=== PATIENT | female | born 1960 | race Caucasian/White ===

== ENCOUNTER 2021-08-02 12:15 | Inpatient (IN) | payer OTHER, SELFPAY ==
[2021-08-02] VITALS (40 sets, daily range): BP systolic 87–120; BP diastolic 61–91; PULSE 51–92; RESP 9–33; TEMP 36.7–37.1; O2SAT 88–100
--- NOTE | ~2021-08-02 | US_ITS ---
EXAMINATION: US pelvic complete EXAM DATE: 08/02/2021 15:41 INDICATION: Vaginal bleeding. TECHNIQUE: Pelvic transabdominal sonogram was performed. There are multiple grayscale and Doppler im ages available for interpretation. There is no prior study for comparison. FINDINGS: Uterus measures 10.4 x 4.2 x 4.8 cm, with a 3.5 cm fibroid in the fundus anteriorly. Endom etrial stripe measures 11 mm, considered abnormally thickened for postmenopausal status. There is no free pelvic fluid. Right adnexa: The ovary is not identified. There is no adnexal mass. Left adnexa: The ovary is not identified. There is no adnexal mass. IMPRESSION: Thickened endometrium at 1.1 cm, differential diagnosis including hyperplasia, carcinoma, polyp. Consider CROSSING GUARD consult, histologic correlation. Fibroid. Reviewed, dictated and finalized at location G. NG SPECIALIST HOME HEALTH IMPRESSION: Thickened endometrium at 1.1 cm, differential diagnosis including h yperplasia, carcinoma, polyp. Consider CROSSING GUARD consult, histologic correlation. Tri mckeon.
--- NOTE | ~2021-08-02 | XR_ITS ---
EXAMINATION: XR chest 1V EXAM DATE: 08/02/2021 15:37 INDICATION: SOA . TECHNIQUE: Portable AP frontal chest x-ray was obtained. There is no prior study for comparison. FINDINGS: Cardiomegaly and pulmonary vascular congestion. There is indistinct reticulation with a bib rajani predominance which may indicate pulmonary edema. There is no pneumothorax suspected. Possible sm all pleural effusion. There is aortic arteriosclerosis. There are no osseous abnormalities identified . IMPRESSION: Findings consistent with mild CHF observation. Pneumonia not excludable. Reviewed, dictated and finalized at location G. GY CONSERVATION SPECIALIST IMPRESSION: Findings consistent with mild CHF observation. Pneumonia not exclu dable.
--- NOTE | ~2021-08-02 | XR_ITS ---
XR chest 2V 08/07/2021 10:31 Indication: Pneumonia. CHF. Procedure: 2 view chest Comparison: No prior studies for comparison. Findings: Heart size normal for technique. Possible small effusion posteriorly. No focal air space di sease, pulmonary edema, or suspected pneumothorax. Impression: 1: Possible small effusion posteriorly on the lateral view. Reviewed, dictated and finalized at location A. CITY PLANNING ANALYST Impression: 1: Possible small effusion posteriorly on the lateral view.
[2021-08-02 15:26] LABS: Base Excess ABG 13.2 mEq/l (+/-2.0); Carboxyhemoglobin 7.6 % THb (0-2.0); Fractional Inspired Oxygen 32 %; HCO3 ABG 48.5 mEq/l (22.0-26.0); Methemoglobin ABG 0.3 %THb (0-1.5); Oxygen Content ABG 20.5 %vol (16.0-22.0); Oxygen Saturation ABG 93.2 % (95.0-100.0); PO2 ABG 86.9 mmHg (80.0-100.0); PO2 FiO2 Ratio Arterial Blood 2.72 %; Reduced Hemoglobin 4.6 %THb (0-5.0); Total Hemoglobin 16.6 g/dL (12.0-18.0)
[2021-08-02 15:28] LABS: Oxyhemoglobin 87.5 % THb (90.0-100.0); PCO2 ABG 128.8 mmHg (35.0-45.0); pH ABG 7.194 (7.350-7.450)
[2021-08-02 15:29] LABS: Device NASAL CANNULA; Modified Allen's Test Pass; Site Drawn RIGHT RADIAL
[2021-08-02 16:11] LABS: Basophils Absolute Auto 0.2 K/mm3 (0.0-0.1); Basophils Percent Auto 1.1 % (0.2-1.2); Eosinophils Absolute Auto 0.2 K/mm3 (0-0.3); Eosinophils Percent Auto 1.1 % (0-4.4); Hematocrit 53.8 % (37.0-47.0); Hemoglobin 16.6 g/dL (12.0-15.0); Immature Granulocyte Absolute 0.17 K/mm3 (0.00-0.031); Immature Granulocyte Percent A 1.2 % (0-0.5); Lymphocytes Absolute Auto 1.48 K/mm3 (0.9-3.2); Lymphocytes Percent Auto 10.6 % (18.3-44.2); Mean Corpuscular HGB Conc 30.9 g/dl (32-36); Mean Corpuscular Hemoglobin 33.8 pg (26-34); Mean Corpuscular Volume 109.6 fl (80-100); Monocytes Absolute Auto 0.6 K/mm3 (0.1-0.6); Monocytes Percent Auto 4.1 % (2.6-8.5); Neutrophils Absolute Auto 11.5 K/mm3 (1.3-6.7); Neutrophils Percent Auto 81.9 % (45.5-73.1); Nucleated Red Blood Cells Perc 0.1 % (0.0-0.2); Platelet Count Result 296 k/mm3 (150-375); Red Blood Count 4.91 M/mm3 (4.2-5.4); Red Cell Distribution Width 16.6 % (11.5-14.5)
--- NOTE | 2021-08-02 16:16 | PC.NURSE ---
Talked to Joanna in lab at 16:16 to add on BNP
[2021-08-02 16:19] LABS: INR 0.8; Prothrombin Time 10.8 Seconds (11.1-14.7)
[2021-08-02 16:20] LABS: Partial Thromboplastin Time 29.2 SECONDS (22.3-36.8)
[2021-08-02 17:10] LABS: Alveolar/Arterial O2 Gradient 307.6 mmHg; Base Excess ABG 15.7 mEq/l (+/-2.0); Fractional Inspired Oxygen 75 %; HCO3 ABG 51.5 mEq/l (22.0-26.0); Oxygen Content ABG 21.2 %vol (16.0-22.0); Oxygen Saturation ABG 93.1 % (95.0-100.0); Oxyhemoglobin 89.1 % THb (90.0-100.0); PO2 ABG 85.8 mmHg (80.0-100.0); PO2 FiO2 Ratio Arterial Blood 1.14 %; Total Hemoglobin 16.9 g/dL (12.0-18.0)
[2021-08-02 17:11] LABS: pH ABG 7.206 (7.350-7.450)
[2021-08-02 17:12] LABS: Device NON-INVASIVE VENT; Modified Allen's Test Pass; Non-Invasive Expiratory Pressure 10 CMH2O; Non-Invasive Inspiratory Pressure 20 CMH2O; Non-Invasive Vent Rate 24 /MIN; Site Drawn LEFT RADIAL
[2021-08-02] MEDS: FUROSEMIDE INJ 40 MG/4 ML VIAL IV PUSH (18:05)
--- NOTE | 2021-08-02 18:24 | ED.GENADULT ---
HPI - General Adult General Chief complaint: Vaginal Bleeding Stated complaint: Bleeding from Vagina Time Seen by Provider: 08/02/21 15:01 History of Present Illness HPI narrative: Patient is a 61-year-old female who presents the ER with reports of vaginal bleeding. Patient apparently missed a Returns Clerk appointment today and EMS was called to bring her here. Patient found to be hypoxic on room air. Patient wears 3 L baseline. Patient oriented x 2 and unsure why she is here. Related Data Allergies Allergy/AdvReac Type Severity Reaction Status Date / Time No Known Allergies Allergy Verified 08/02/21 18:04 Review of Systems Review of Systems: ROS unobtainable: Yes unobtainable due to mental status PMFSH Past Medical History Medical History (Updated 08/02/21 @ 20:22 by Nader Jung MD) COPD (chronic obstructive pulmonary disease) Surgical History Surgical History (Updated 08/02/21 @ 20:22 by Nader Jung MD) Surgical history unknown Social History Social History (Updated 08/02/21 @ 20:22 by Nader Jung MD) Smoking status: Unknown if ever smoked Exam Narrative: GENERAL: Chronically ill-appearing, morbidly obese, and in no acute distress. HEAD: Normocephalic, atraumatic. EYES: PERRL and EOMI. ENT: Mucous membranes moist. CHEST: Clear to auscultation. No respiratory distress. HEART: Regular rate and rhythm. Normal peripheral pulses. ABDOMEN: Soft, nontender, nondistended. EXTREMITIES: Normal range of motion. 1+ edema. SKIN: Warm, dry, no rash. NEURO: Alert and oriented x2. Course Reevaluation(s) Reevaluation #2: Discussed case with Dr. Ingram. ABG improving and patient clinically improving. Diuresing well. Will place in the IMU. Date: 08/02/21 Time: 20:12 Consultations Consultation #1: Discussed case with Dr. Wade in the ICU. Clinically patient is more awake but ABG not improving. He would like the patient to have her EPAP decreased to 5 from 10 and have her on the minimum oxygen requirement possible. Repeat ABG in 1 hour. Patient is accepted to the ICU but will likely be held in the ER due to lack of beds. He also recommends IV Lasix which has been ordered as well as IV antibiotics. Date: 08/02/21 Time: 18:24 Vital Signs Vital signs: Vital Signs Temperature 98.8 F 08/02/21 12:45 Pulse Rate 92 08/02/21 12:45 Respiratory Rate 18 08/02/21 12:45 Blood Pressure 120/87 08/02/21 12:45 Pulse Oximetry 92 08/02/21 12:45 Temperature 98.8 F 08/02/21 12:45 Pulse Rate 81 08/02/21 19:52 Respiratory Rate 25 H 08/02/21 19:52 Blood Pressure 120/87 08/02/21 12:45 Pulse Oximetry 100 08/02/21 19:52 Medical Decision Making Vital Signs Vital Signs: Vital Signs Temperature 98.8 F 08/02/21 12:45 Pulse Rate 92 08/02/21 12:45 Respiratory Rate 18 08/02/21 12:45 Blood Pressure 120/87 08/02/21 12:45 Pulse Oximetry 92 08/02/21 12:45 Temperature 98.8 F 08/02/21 12:45 Pulse Rate 81 08/02/21 19:52 Respiratory Rate 25 H 08/02/21 19:52 Blood Pressure 120/87 08/02/21 12:45 Pulse Oximetry 100 08/02/21 19:52 Lab Data Result diagrams: 08/02/21 15:59 08/02/21 19:23 Labs: Lab Results 08/02/21 08/02/21 08/02/21 Range/Units 15:23 15:59 15:59 WBC 14.0 H (4.5-10.0) K/mm3 RBC 4.91 (4.2-5.4) M/mm3 Hgb 16.6 H (12.0-15.0) g/dL Hct 53.8 H (37.0-47.0) % MCV 109.6 H (80-100) fl MCH 33.8 (26-34) pg MCHC 30.9 L (32-36) g/dl RDW 16.6 H (11.5-14.5) % Plt Count 296 (150-375) k/mm3 MPV 9.0 (7.4-10.4) fl Immature Gran % (Auto) 1.2 H (0-0.5) % Neut % (Auto) 81.9 H (45.5-73.1) % Lymph % (Auto) 10.6 L (18.3-44.2) % Crowley % (Auto) 4.1 (2.6-8.5) % Eos % (Auto) 1.1 (0-4.4) % Baso % (Auto) 1.1 (0.2-1.2) % Lymph # (Auto) 1.48 (0.9-3.2) K/mm3 Crowley # (Auto) 0.6 (0.1-0.6) K/mm3 Eos # (Auto) 0.2 (0-0.3) K/mm3 Baso # (Auto) 0.2 H
[2021-08-02 18:40] LABS: SARS-CoV-2 RNA PCR Negative
[2021-08-02 18:42] LABS: NT Pro B Type Natriuretic Pept 56 pg/mL (5-100)
[2021-08-02 19:43] LABS: Alanine Aminotransferase 21 U/L (4-35); Albumin Level 4.4 g/dL (3.5-5.1); Alkaline Phosphatase 104 U/L (38-126); Aspartate Amino Transferase 39 U/L (14-36); Bilirubin,Total 0.6 mg/dL (0.2-1.3); Blood Urea Nitrogen 10 mg/dL (7-17); Calcium 8.5 mg/dL (8.4-10.2); Carbon Dioxide > 40 mmol/L (22-30); Chloride 90 mmol/L (98-107); Estimated Glomerular Filt Rate 50; Glucose 110 mg/dL (65-110); Potassium 4.4 mmol/L (3.4-5.0); Sodium 135 mmol/L (137-145)
[2021-08-02 19:47] LABS: Alveolar/Arterial O2 Gradient 205.2 mmHg; Base Excess ABG 12.4 mEq/l (+/-2.0); Fractional Inspired Oxygen 60 %; HCO3 ABG 46.3 mEq/l (22.0-26.0); Oxygen Content ABG 21.2 %vol (16.0-22.0); Oxygen Saturation ABG 95.4 % (95.0-100.0); PO2 FiO2 Ratio Arterial Blood 1.62 %; Total Hemoglobin 16.5 g/dL (12.0-18.0)
[2021-08-02 19:49] LABS: pH ABG 7.226 (7.350-7.450)
[2021-08-02 19:50] LABS: Device NON-INVASIVE VENT; Modified Allen's Test Pass; PCO2 ABG 114.2 mmHg (35.0-45.0); Site Drawn LEFT RADIAL
[2021-08-02 19:51] LABS: Non-Invasive Expiratory Pressure 5 CMH2O; Non-Invasive Inspiratory Pressure 20 CMH2O; Non-Invasive Vent Rate 24 /MIN
--- NOTE | 2021-08-02 20:02 | PM.IMHP ---
H&P: HPI History of Present Illness Date/Time: 08/02/21 20:02 Chief Complaint: Shortness of breath Narrative: This is a 61-year-old female with past medical history significant for COPD, patient was brought to the emergency room via EMS, due to worsening shortness of breath, low oxygen saturation on 3 L by nasal cannula. Patient does not have any prior records available for reviewing at this time. Most of the history has been obtained from emergency room. At the time of my visit patient is on BiPAP history taking hence is limited. But patient was supposed to have follow-up appointment with Tanning Salon Attendant postmenopausal vaginal bleed seemingly was unable to make it to the appointment and turned up to our emergency room. Preliminary workup was significant for chest x-ray with infiltrates, Gyne Neutra some with thickened endometrium. Decision has been made to admit the patient for further evaluation, management and treatment. Review of Systems Review of Systems: ROS unobtainable: Yes unobtainable due to medical condition (On BiPAP) PMFSH Past Medical History Medical History (Updated 08/03/21 @ 03:03 by Richard Ingram MD) COPD (chronic obstructive pulmonary disease) Surgical History Surgical History (Updated 08/02/21 @ 20:22 by Nader Jung MD) Surgical history unknown Family History Family History (Updated 08/02/21 @ 23:15 by Liana Gao RN) Other Unknown family medical history Social History Social History (Updated 08/02/21 @ 20:22 by Nader Jung MD) Smoking status: Current every day smoker Alcohol intake: never Substance use: current Substance use type: marijuana Spiritual care concerns: No Meds Home Medications and Allergies Allergies Allergy/AdvReac Type Severity Reaction Status Date / Time No Known Allergies Allergy Verified 08/02/21 18:04 Vital Signs Vital Signs - 24 hr 08/02/21 12:45 08/02/21 15:44 08/02/21 17:02 Temperature 98.8 F Pulse Rate 92 78 86 Respiratory Rate 18 24 H 33 H Blood Pressure 120/87 Pulse Oximetry 92 93 97 08/02/21 17:27 08/02/21 18:26 08/02/21 19:52 Temperature Pulse Rate 73 81 Respiratory Rate 24 H 25 H Blood Pressure Pulse Oximetry 97 88 L 100 Exam Narrative: Patient is laying in gurney Const: General: comfortable, no acute distress, well developed, alert, awake, in distress moderate and respiratory and ill appearing Nutritional Appearance: overweight Orientation/consciousness: patient oriented x3 HENMT: Head: normal to inspection, normocephalic and atraumatic Ears: hearing grossly normal bilaterally General nose exam: Normal external nose present Face and sinus: normal facial exam and other (BiPAP mask on) Mouth: Yes Normal oral and palatal mucosa present Eyes: General: appearance normal, both eyes and all related structures Alignment and Position: alignment normal Sclera: sclerae normal Pupils: Equal, round and reactive pupils present EOM: EOMs intact bilaterally Neck: Neck: normal visual inspection, full ROM, no lymphadenopathy, supple and no JVD Thyroid: thyroid normal Lymphatic: no lymphadenopathy noted Resp: Effort & Inspection: able to speak in complete sentences, respiratory distress and tachypneic Auscultation: crackles on the left and wheezes Cardio: Jugular venous distension: no JVD Rate: tachycardic Rhythm: regular rhythm Heart sounds: S1 normal heart sound present and S2 normal heart sound present GI: Inspection: normal to inspection and other (Noted dried chocolate [place] blood in the lower abdomen) GI Palp: Yes Soft to palpation, No Tenderness to palpation present (GI), No Guarding due to palpation present (GI) and Yes No hepatosplenomegaly present : General: Yes deferred OB/external & speculum: Deferred OB/external & speculum exam Manual OB Exam: Deferred manual OB exam Skin: General skin exam: normal color and turgor normal Rashes: no rashes Wounds: no wounds Neuro: General: pat
--- NOTE | 2021-08-02 22:43 | ADMGEN ---
This patient, Mireya Wagner, was admitted to IMU Room 207-01 at 2243. Patient/family oriented to hospital policies and general routines including ID bracelet, bed and alarms, visiting hours, pain management, procedures, bathroom and other care routines, personal items, smoking policy, room service/diet, and visiting hours. Information on how to activate the Rapid Response Team has been discussed. Patient/Family are encouraged to report perceived risks to care and to ask questions if they do not understand what they are told or what they should do.
[2021-08-03] VITALS (30 sets, daily range): BP systolic 101–133; BP diastolic 62–78; PULSE 60–96; RESP 18–30; TEMP 36.6–36.9; O2SAT 91–98
--- NOTE | 2021-08-03 | ECHO_ITS ---
Patient Info Name: Mireya Ramirez Age: 61 years : 1960 Gender: Female Ht: 62 in Wt: 291 lbs BSA: 2.49 m2 HR: 72 bpm BP: 114 / 65 mmHg Heart Rhythm: Indeterminant Technical Quality: Poor Exam Date: 08/03/2021 10:27 AM Exam Location: [facility] Room: 207 Patient Status: Inpatient Admit Date: 08/03/2021 Staff Ordering Physician: Richard Ingram MD Rubber Goods Tester: Marissa Gonzalez RDCS Attending Provider: Richard Ingram MD Referring Physician: Juan Jose SANTANA; Exam Type: CA echo dop color flow w con Study Info Indications - CHF Complete two-dimensional, color flow and Doppler transthoracic echocardiogram is performed with contrast to opacify the left ventricle and to improve the deliniation of the left ventricle endocardial borders. Contrast/Agitated Saline Contrast/Ag. Saline: Definity Amount: 3.00 ml Existing IV Access: Yes IV Access Condition: patent with no signs of infiltration Reason for Poor Study: patient body habitus Summary 1. Normal left ventricular size with borderline concentric hypertrophy. Good systolic function of all segments with no segmental wall motion abnormalities. Ejection fraction estimated to be 60-65%. Diastolic function is indeterminate. 2. No significant valve disease. 3. Mild left atrial enlargement. 4. Difficult exam with limited views, IV definity contrast used. Left Ventricle Left ventricular chamber dimension is normal. Left ventricular systolic function is normal, estimated at 60-65%. There is mildly increased left ventricular wall thickness. Left ventricular septal wall motion is normal. The left ventricular diastolic function is indeterminate. Right Ventricle Right ventricular chamber dimension is normal. Right ventricular systolic function is normal. Left Atria Left atrial chamber dimension is mildly enlarged. Right Atria Right atrial chamber dimension is normal. Aortic Valve The aortic valve is trileaflet. There is no aortic valve sclerosis. There is no aortic valve stenosis. There is no aortic valve regurgitation. Pulmonic Valve The pulmonic valve is normal. There is no pulmonic valve stenosis. There is no pulmonic regurgitation. Mitral Valve The mitral valve has normal leaflets. There is no mitral valve stenosis. There is no mitral valve regurgitation. Tricuspid Valve The tricuspid valve leaflets are normal. There is no significant tricuspid valve stenosis. There is no tricuspid valve regurgitation. No pulmonary hypertension, estimated pulmonary arterial systolic pressure is Empty. Pericardium/Pleural The pericardium appears normal. There is no pericardial effusion. Inferior Vena Cava Normal inferior vena cava with >50% collapse upon inspiration consistent with Empty right atrial pressure, Empty. Aorta The aortic root size at the sinus of Valsalva is normal. The prox ascending aorta size is normal. Left Ventricular Outflow Tract Name Value Normal LVOT 2D LVOT Diameter 2.07 cm LVOT Doppler LVOT Peak Gradient 5
[2021-08-03] MEDS: IPRATROPIUM BR 0.02% INH SOLN 0.5 MG/2.5 ML VIAL INHALATION ×5 (04:06→21:33)
[2021-08-03] MEDS: ALBUTEROL SULFATE NEB 2.5 MG/0.5 ML INH INHALATION ×5 (04:06→21:33)
[2021-08-03] MEDS: methylPREDNISolone SOD SUCC 125 MG VIAL IV PUSH (04:15)
[2021-08-03 05:20] LABS: NT Pro B Type Natriuretic Pept 40 pg/mL (5-100)
[2021-08-03] MEDS: PERFLUTREN LIPID MICROSPHERES 1.5 ML VIAL DILUTED TO 10 ML TOTAL VOLUME IV PUSH (11:01)
--- NOTE | 2021-08-03 11:01 | IVDEFINITY ---
Prior to administration of IV Definity the patient was educated on the risks and benefits of the imaging enhancing agent including potential adverse side effects. The patient verbalized understanding. Allergies were verified. No exclusion criteria were identified and at least one of the following inclusion criteria were met: 1) physician request, 2) patient technically difficult to image (per the [place] [employer]chocardi[employer] guidelines of two or more segments not discernable within the apical view), or 3) questionable left ventricular function. ?
[2021-08-03] MEDS: methylPREDNISolone SOD SUCC 125 MG VIAL 60 MG IV PUSH ×2 (11:37→20:31)
[2021-08-03] MEDS: FUROSEMIDE INJ 40 MG/4 ML VIAL IV PUSH ×2 (11:37→20:30)
[2021-08-03 12:11] LABS: Alveolar/Arterial O2 Gradient 209.9 mmHg; Base Excess ABG 12.4 mEq/l (+/-2.0); Fractional Inspired Oxygen 50 %; HCO3 ABG 42.5 mEq/l (22.0-26.0); Oxygen Content ABG 21.6 %vol (16.0-22.0); Oxygen Saturation ABG 88.1 % (95.0-100.0); Oxyhemoglobin 90.7 % THb (90.0-100.0); PO2 ABG 58.9 mmHg (80.0-100.0); PO2 FiO2 Ratio Arterial Blood 1.18 %; pH ABG 7.354 (7.350-7.450)
[2021-08-03 12:16] LABS: Device NON-INVASIVE VENT; Modified Allen's Test Pass; Non-Invasive Expiratory Pressure 5 CMH2O; Non-Invasive Inspiratory Pressure 20 CMH2O; Non-Invasive Vent Rate 24 /MIN; Site Drawn RIGHT RADIAL
[2021-08-03 13:11] LABS: D Dimer 0.46 ug/mL (<0.48)
--- NOTE | 2021-08-03 15:38 | PM.IMPN ---
Progress Note: A&P Assessment and Plan (1) Acute hypercapnic respiratory failure: Code(s): J96.02 - Acute respiratory failure with hypercapnia Status: Acute Assessment and Plan: Admit to IMU Continuous BiPAP ABG reviewed Repeat ABG in a.m. Try and keep oxygen saturation at 94% Continuous pulse ox Continuous telemetry Bed rest 08/03/2021 interval history: patient is 61-year-old female with history of COPD and chronic hypercapnic respiratory failure admitted with exacerbation of COPD patient is being treated with Solu-Medrol and updraft currently patient on BiPAP, did ABG which showed improvement in patient's CO2 from 114 to to 78, plan is to take the patient off BiPAP briefly to let the patient eat and then S the patient back on BiPAP and continue to monitor, is patient's symptoms improved will taper patient methylprednisone, also there is a concern the patient may have community-acquired pneumonia and being treated with Rocephin and azithromycin. there is also concern patient may have vaginal bleeding will consult rapier insertion loom fixer for further recommendation (2) COPD (chronic obstructive pulmonary disease): Code(s): J44.9 - Chronic obstructive pulmonary disease, unspecified Status: Inactive Assessment and Plan: Breathing treatments q.4 hours Systemic steroids Added Rocephin and Zithromax Blood cultures in progress BNP ECHOCARDIOGRAM CT HIGH-RESOLUTION OF THE CHEST (3) Pneumonia: Code(s): J18.9 - Pneumonia, unspecified organism Status: Acute Assessment and Plan: Rocephin and Zithromax Blood cultures in progress (4) Abnormal vaginal bleeding in postmenopausal patient: Code(s): N95.0 - Postmenopausal bleeding Status: Acute Assessment and Plan: Slate Splitting Supervisor consult Pelvic ultrasound reviewed Subjective Date/time seen: 08/03/21 15:38 This is a 61-year-old female with past medical history significant for COPD, patient was brought to the emergency room via EMS, due to worsening shortness of breath, low oxygen saturation on 3 L by nasal cannula. Patient does not have any prior records available for reviewing at this time. Most of the history has been obtained from emergency room. At the time of my visit patient is on BiPAP history taking hence is limited. But patient was supposed to have follow-up appointment with Slate Splitting Supervisor postmenopausal vaginal bleed seemingly was unable to make it to the appointment and turned up to our emergency room. Preliminary workup was significant for chest x-ray with infiltrates, Gyne Neutra some with thickened endometrium. Decision has been made to admit the patient for further evaluation, management and treatment. 08/03/2021 interval history: patient is 61-year-old female with history of COPD and chronic hypercapnic respiratory failure admitted with exacerbation of COPD patient is being treated with Solu-Medrol and updraft currently patient on BiPAP, did ABG which showed improvement in patient's CO2 from 114 to to 78, plan is to take the patient off BiPAP briefly to let the patient eat and then S the patient back on BiPAP and continue to monitor, is patient's symptoms improved will taper patient methylprednisone, also there is a concern the patient may have community-acquired pneumonia and being treated with Rocephin and azithromycin. there is also concern patient may have vaginal bleeding will consult rapier insertion loom fixer for further recommendation Review of Systems Review of Systems: ROS unobtainable: Yes unobtainable due to medical condition Exam Narrative: morbidly obese Patient is comfortable, NAD HEENT: eyes are clear and none icteric BiPAP in place LUNGS: bilateral poor air entry with rhonchi and wheezing HEART: RR S1S2 ABD: distended Lower extremities: no edema SKIN: nonjaundiced Neuro: grossly intact. Objective Data Vital Signs Vital Signs: Vital Signs - 24 hr 08/02/21 15:39 08/02/21 15:44 08/02/21 15:47 Temperature Pulse Rate 87 78 51 L
[2021-08-03 17:59] LABS: Alveolar/Arterial O2 Gradient 414.3 mmHg; Base Excess ABG 9.6 mEq/l (+/-2.0); Fractional Inspired Oxygen 80 %; HCO3 ABG 39.8 mEq/l (22.0-26.0); Oxygen Content ABG 21.3 %vol (16.0-22.0); Oxygen Saturation ABG 92.4 % (95.0-100.0); Oxyhemoglobin 93.2 % THb (90.0-100.0); PO2 ABG 72.1 mmHg (80.0-100.0); Total Hemoglobin 16.3 g/dL (12.0-18.0); pH ABG 7.315 (7.350-7.450)
[2021-08-03 18:01] LABS: Device HIGH FLOW NASAL CANN; Modified Allen's Test Pass; Site Drawn RIGHT RADIAL
[2021-08-04] VITALS (24 sets, daily range): BP systolic 101–111; BP diastolic 66–68; PULSE 68–101; RESP 12–26; TEMP 36.1–36.6; O2SAT 86–98
[2021-08-04] MEDS: IPRATROPIUM BR 0.02% INH SOLN 0.5 MG/2.5 ML VIAL INHALATION ×6 (00:59→23:45)
[2021-08-04] MEDS: ALBUTEROL SULFATE NEB 2.5 MG/0.5 ML INH INHALATION ×6 (00:59→23:45)
[2021-08-04] MEDS: methylPREDNISolone SOD SUCC 125 MG VIAL 60 MG IV PUSH ×5 (02:51→23:51)
[2021-08-04 05:21] LABS: Hematocrit 47.9 % (37.0-47.0); Hemoglobin 14.9 g/dL (12.0-15.0); Mean Corpuscular HGB Conc 31.1 g/dl (32-36); Mean Corpuscular Hemoglobin 32.6 pg (26-34); Mean Corpuscular Volume 104.8 fl (80-100); Mean Platelet Volume 8.9 fl (7.4-10.4); Platelet Count Result 306 k/mm3 (150-375); Red Blood Count 4.57 M/mm3 (4.2-5.4); Red Cell Distribution Width 15.6 % (11.5-14.5); White Blood Count 18.1 K/mm3 (4.5-10.0)
[2021-08-04 05:32] LABS: Blood Urea Nitrogen 16 mg/dL (7-17); Calcium 7.3 mg/dL (8.4-10.2); Carbon Dioxide > 40 mmol/L (22-30); Chloride 84 mmol/L (98-107); Estimated CRCL calculation 60 ml/min; Estimated Glomerular Filt Rate 50; Glucose 184 mg/dL (65-110); Potassium 4.3 mmol/L (3.4-5.0); Sodium 131 mmol/L (137-145)
[2021-08-04] MEDS: LEVOTHYROXINE SODIUM 100 MCG, LEVOTHYROXINE SODIUM 75 MCG 175 MCG PO (10:09)
[2021-08-04] MEDS: FUROSEMIDE INJ 40 MG/4 ML VIAL IV PUSH ×2 (10:09→17:33)
[2021-08-04] MEDS: TRIAMCINOLONE ACET 0.1% OINT 15 GM TUBE 1 APPLIC TOPICAL ×2 (10:19→22:31)
--- NOTE | 2021-08-04 12:50 | WPDCN ---
Assessment and Plan Assessment and plan (1) Abnormal vaginal bleeding in postmenopausal patient: Code(s): N95.0 - Postmenopausal bleeding Status: Acute Assessment and Plan: Discussed with her the possible etiologies of this which can cause abnormal bleeding. Discussed with her endometrial biopsy which can be done or attempted on the floor and if the cells are abnormal or if inadequate then she may need a dilation and curettage possible hysteroscopy. Discussed what these procedures are and the risks benefits of each. She did agree to do the endometrial biopsy on the floor while she is here. Endometrial biopsy performed on the floor. See procedure note. Biopsy was difficult to perform due to patient discomfort, appeared to be mostly blood. Specimen will be sent to pathology, if inadequate then recommend D and C hysteroscopy which can be done outpatient or inpatient. HPI Data of Consult Date/Time: 08/03/21 1800 Requesting Physician: Richard Ingram MD Primary Care Provider: UNKNOWN,DOCTOR Consult Narrative Narrative: Mireya Ramirez is a 61 year old female with a long history of postmenopausal bleeding. She was unable to specify the duration of the bleeding. She stated it could have been occurring anywhere from 6 months to over a year. She did state that she has been evaluated for this in the past and she has been told that she had endometrial polyps. She does not remember when or where. She does not remember if she had a D and C she thinks she had a biopsy or several biopsies in the past but she is not a good historian. She denies any pelvic pain. She states the bleeding ranges from bleeding with wiping to getting some on her underwear. She denies saturating more than a pad an hour. She was informed that the ultrasound that was performed when she was admitted was abnormal it showed that her endometrial lining was thicker than what it should be for postmenopausal patient. Discussed with her the possible etiologies of this which can cause abnormal bleeding. Discussed with her endometrial biopsy which can be done or attempted on the floor and if the cells are abnormal or if inadequate then she may need a dilation and curettage possible hysteroscopy. Discussed what these procedures are and the risks benefits of each. She did agree to do the endometrial biopsy on the floor while she is here. Review of Systems Constitutional: Constitutional: Reports as per HPI Eyes: Eyes: Reports no additional eye complaints Cardiovascular: Cardiovascular: Reports chest pain Respiratory: Respiratory: Reports cough and Reports dyspnea Genitourinary: Genitourinary: Reports as per HPI Integumentary/Breasts: Skin/Breast: Reports system reviewed and no additional complaints, except as docu PMFSH Past Medical History Medical History COPD (chronic obstructive pulmonary disease) Surgical History Surgical History Surgical history unknown Family History Family History Other Unknown family medical history Social History Social History Smoking status: Current every day smoker Alcohol intake: never Substance use: current Substance use type: marijuana Spiritual care concerns: No Meds Home Medications and Allergies Home Medications Medication Instructions Recorded Confirmed Type albuterol sulfate 2 puff INHALATION Q4H PRN 08/04/21 08/04/21 History glycopyrrolate-formoterol [Bevespi 2 puff INHALATION Q12H 08/04/21 08/04/21 History Aerosphere] levothyroxine 175 mcg PO DAILY 08/04/21 08/04/21 History triamcinolone acetonide 1 applic TOPICAL Q12H 08/04/21 08/04/21 History Allergies Allergy/AdvReac Type Severity Reaction Status Date / Time No Known Allergies Allergy Verifie
--- NOTE | 2021-08-04 13:19 | PM.OP ---
Procedure Note - Brief Procedure Note - Brief Date of procedure: 08/03/21 Pre-op diagnosis: hypercapnic respiratory failure,ams,pneumonia Post-op diagnosis: same Procedure performed: Endometrial biopsy Description of procedure: After informed consent obtained. Performed on the floor inpatient. Patient placed on reverse bedpan. Speculum inserted. Small to moderate amount dark blood in vagina. Cervix visualized, mildly stenotic. Single tooth tenaculum placed on cervix. Endometrial pipelle passed twice. Mostly blood noted. Tenaculum removed. Hemostasis noted at site. Pap not performed due to the blood. Speculum removed. Will inform patient of biopsy result. Surgeon: Alexandre Bennett MD
--- NOTE | 2021-08-04 14:57 | PM.IMPN ---
Progress Note: A&P Assessment and Plan (1) Acute hypercapnic respiratory failure: Code(s): J96.02 - Acute respiratory failure with hypercapnia Status: Acute Assessment and Plan: Admit to IMU Continuous BiPAP ABG reviewed Repeat ABG in a.m. Try and keep oxygen saturation at 94% Continuous pulse ox Continuous telemetry Bed rest 08/03/2021 interval history: patient is 61-year-old female with history of COPD and chronic hypercapnic respiratory failure admitted with exacerbation of COPD patient is being treated with Solu-Medrol and updraft currently patient on BiPAP, did ABG which showed improvement in patient's CO2 from 114 to to 78, plan is to take the patient off BiPAP briefly to let the patient eat and then S the patient back on BiPAP and continue to monitor, is patient's symptoms improved will taper patient methylprednisone, also there is a concern the patient may have community-acquired pneumonia and being treated with Rocephin and azithromycin. there is also concern patient may have vaginal bleeding will consult biodiesel division manager for further recommendation. 08/04/2021 interval history: patient is 61-year-old female with history of COPD and chronic hypercapnic respiratory failure admitted with exacerbation of COPD patient is being treated with Solu-Medrol and updraft currently patient on BiPAP, did ABG which showed improvement in patient's CO2 from 114 to to 78, plan is to take the patient off BiPAP briefly to let the patient eat and then as the patient back on BiPAP and continue to monitor, today today patient's symptoms are improved on nasal cannula will continue to monitor, as patient's symptoms improved will taper patient methylprednisone, also there is a concern the patient may have community-acquired pneumonia and being treated with Rocephin and azithromycin. there is also concern patient may have vaginal bleeding patient was seen OBGYN and biopsy was taken will monitor and further recommendation to follow. (2) COPD (chronic obstructive pulmonary disease): Code(s): J44.9 - Chronic obstructive pulmonary disease, unspecified Status: Inactive Assessment and Plan: Breathing treatments q.4 hours Systemic steroids Added Rocephin and Zithromax Blood cultures in progress BNP ECHOCARDIOGRAM CT HIGH-RESOLUTION OF THE CHEST (3) Pneumonia: Code(s): J18.9 - Pneumonia, unspecified organism Status: Acute Assessment and Plan: Rocephin and Zithromax Blood cultures in progress (4) Abnormal vaginal bleeding in postmenopausal patient: Code(s): N95.0 - Postmenopausal bleeding Status: Acute Assessment and Plan: Research Scientist consult Pelvic ultrasound reviewed Subjective Date/time seen: 08/04/21 14:57 08/03/2021 interval history: patient is 61-year-old female with history of COPD and chronic hypercapnic respiratory failure admitted with exacerbation of COPD patient is being treated with Solu-Medrol and updraft currently patient on BiPAP, did ABG which showed improvement in patient's CO2 from 114 to to 78, plan is to take the patient off BiPAP briefly to let the patient eat and then S the patient back on BiPAP and continue to monitor, is patient's symptoms improved will taper patient methylprednisone, also there is a concern the patient may have community-acquired pneumonia and being treated with Rocephin and azithromycin. there is also concern patient may have vaginal bleeding will consult biodiesel division manager for further recommendation 08/04/2021 interval history: patient is 61-year-old female with history of COPD and chronic hypercapnic respiratory failure admitted with exacerbation of COPD patient is being treated with Solu-Medrol and updraft currently patient on BiPAP, did ABG which showed improvement in patient's CO2 from 114 to to 78, plan is to take the patient off BiPAP briefly to let the patient eat and then as the patient back on BiPAP and continue to monitor, today today patient's symptoms are improved on na
[2021-08-04] MEDS: HYDROcodone/acetaminophen (*CRX) 5-325 MG TABLET 1 TAB PO (20:26)
[2021-08-05] VITALS (30 sets, daily range): BP systolic 100–134; BP diastolic 1–89; PULSE 64–88; RESP 14–26; TEMP 36.2–37.4; O2SAT 92–97
[2021-08-05] MEDS: ALBUTEROL SULFATE NEB 2.5 MG/0.5 ML INH INHALATION ×5 (04:31→20:53)
[2021-08-05] MEDS: IPRATROPIUM BR 0.02% INH SOLN 0.5 MG/2.5 ML VIAL INHALATION ×5 (04:31→20:53)
[2021-08-05 05:59] LABS: Hematocrit 48.6 % (37.0-47.0); Mean Corpuscular HGB Conc 30.9 g/dl (32-36); Mean Corpuscular Hemoglobin 33.2 pg (26-34); Mean Corpuscular Volume 107.5 fl (80-100); Mean Platelet Volume 9.5 fl (7.4-10.4); Platelet Count Result 292 k/mm3 (150-375); Red Blood Count 4.52 M/mm3 (4.2-5.4); Red Cell Distribution Width 15.8 % (11.5-14.5); White Blood Count 19.3 K/mm3 (4.5-10.0)
[2021-08-05 06:13] LABS: Blood Urea Nitrogen 22 mg/dL (7-17); Calcium 7.5 mg/dL (8.4-10.2); Carbon Dioxide > 40 mmol/L (22-30); Chloride 81 mmol/L (98-107); Estimated CRCL calculation 68 ml/min; Estimated Glomerular Filt Rate > 60; Glucose 157 mg/dL (65-110); Potassium 4.5 mmol/L (3.4-5.0); Sodium 129 mmol/L (137-145)
[2021-08-05] MEDS: LEVOTHYROXINE SODIUM 100 MCG, LEVOTHYROXINE SODIUM 75 MCG 175 MCG PO (06:40)
[2021-08-05] MEDS: methylPREDNISolone SOD SUCC 125 MG VIAL 60 MG IV PUSH ×4 (06:40→23:53)
[2021-08-05] MEDS: HYDROcodone/acetaminophen (*CRX) 5-325 MG TABLET 1 TAB PO (06:50)
[2021-08-05] MEDS: FUROSEMIDE INJ 40 MG/4 ML VIAL IV PUSH ×2 (12:23→17:44)
[2021-08-05] MEDS: TRIAMCINOLONE ACET 0.1% OINT 15 GM TUBE 1 APPLIC TOPICAL ×2 (12:23→21:18)
[2021-08-05 12:51] LABS: Alveolar/Arterial O2 Gradient 280.1 mmHg; Base Excess ABG 18.7 mEq/l (+/-2.0); Fractional Inspired Oxygen 60 %; HCO3 ABG 48.2 mEq/l (22.0-26.0); Oxygen Saturation ABG 92.3 % (95.0-100.0); Oxyhemoglobin 93.1 % THb (90.0-100.0); PO2 ABG 65.3 mmHg (80.0-100.0); PO2 FiO2 Ratio Arterial Blood 1.09 %; Total Hemoglobin 16.1 g/dL (12.0-18.0); pH ABG 7.426 (7.350-7.450)
[2021-08-05 12:55] LABS: Device NON-INVASIVE VENT; Modified Allen's Test Pass; PCO2 ABG 74.9 mmHg (35.0-45.0); Site Drawn RIGHT RADIAL
[2021-08-05 12:56] LABS: Non-Invasive Expiratory Pressure 5 CMH2O; Non-Invasive Inspiratory Pressure 20 CMH2O; Non-Invasive Vent Rate 24 /MIN
--- NOTE | 2021-08-05 16:28 | PM.IMPN ---
Progress Note: A&P Assessment and Plan (1) Acute hypercapnic respiratory failure: Code(s): J96.02 - Acute respiratory failure with hypercapnia Status: Acute Assessment and Plan: Admit to IMU Continuous BiPAP ABG reviewed Repeat ABG in a.m. Try and keep oxygen saturation at 94% Continuous pulse ox Continuous telemetry Bed rest 08/03/2021 interval history: patient is 61-year-old female with history of COPD and chronic hypercapnic respiratory failure admitted with exacerbation of COPD patient is being treated with Solu-Medrol and updraft currently patient on BiPAP, did ABG which showed improvement in patient's CO2 from 114 to to 78, plan is to take the patient off BiPAP briefly to let the patient eat and then S the patient back on BiPAP and continue to monitor, is patient's symptoms improved will taper patient methylprednisone, also there is a concern the patient may have community-acquired pneumonia and being treated with Rocephin and azithromycin. there is also concern patient may have vaginal bleeding will consult business practices supervisor for further recommendation. 08/04/2021 interval history: patient is 61-year-old female with history of COPD and chronic hypercapnic respiratory failure admitted with exacerbation of COPD patient is being treated with Solu-Medrol and updraft currently patient on BiPAP, did ABG which showed improvement in patient's CO2 from 114 to to 78, plan is to take the patient off BiPAP briefly to let the patient eat and then as the patient back on BiPAP and continue to monitor, today today patient's symptoms are improved on nasal cannula will continue to monitor, as patient's symptoms improved will taper patient methylprednisone, also there is a concern the patient may have community-acquired pneumonia and being treated with Rocephin and azithromycin. there is also concern patient may have vaginal bleeding patient was seen OBGYN and biopsy was taken will monitor and further recommendation to follow. 08/05/2021 interval history: today patient again placed on BiPAP repeat ABG showed slight improvement and pCo2 74.9 compared 133 upon arrival, will continue BIPAP and monitor, will CPM with had methylprednisone and updraft, will continue to monitor and further recommendation to follow, there is a concerned the patient has history of hypothyroid will do the TSH, patient had uterus biopsy pending pathology report, will follow-up. (2) COPD (chronic obstructive pulmonary disease): Code(s): J44.9 - Chronic obstructive pulmonary disease, unspecified Status: Inactive Assessment and Plan: Breathing treatments q.4 hours Systemic steroids Added Rocephin and Zithromax Blood cultures in progress BNP ECHOCARDIOGRAM CT HIGH-RESOLUTION OF THE CHEST (3) Pneumonia: Code(s): J18.9 - Pneumonia, unspecified organism Status: Acute Assessment and Plan: Rocephin and Zithromax Blood cultures in progress (4) Abnormal vaginal bleeding in postmenopausal patient: Code(s): N95.0 - Postmenopausal bleeding Status: Acute Assessment and Plan: Maturity Checker consult Pelvic ultrasound reviewed Subjective Date/time seen: 08/05/21 16:28 08/03/2021 interval history: patient is 61-year-old female with history of COPD and chronic hypercapnic respiratory failure admitted with exacerbation of COPD patient is being treated with Solu-Medrol and updraft currently patient on BiPAP, did ABG which showed improvement in patient's CO2 from 114 to to 78, plan is to take the patient off BiPAP briefly to let the patient eat and then S the patient back on BiPAP and continue to monitor, is patient's symptoms improved will taper patient methylprednisone, also there is a concern the patient may have community-acquired pneumonia and being treated with Rocephin and azithromycin. there is also concern patient may have vaginal bleeding will consult business practices supervisor for further recommendation. 08/04/2021 interval history: patient is 61-year-old fem
[2021-08-05] MEDS: acetaZOLAMIDE TAB 250 MG TABLET PO (17:44)
[2021-08-06] VITALS (29 sets, daily range): BP systolic 98–111; BP diastolic 50–71; PULSE 64–80; RESP 20–28; TEMP 35.7–37.5; O2SAT 85–97
[2021-08-06] MEDS: ALBUTEROL SULFATE NEB 2.5 MG/0.5 ML INH INHALATION ×5 (00:55→20:48)
[2021-08-06] MEDS: IPRATROPIUM BR 0.02% INH SOLN 0.5 MG/2.5 ML VIAL INHALATION ×5 (00:55→20:49)
[2021-08-06 05:19] LABS: Hematocrit 45.1 % (37.0-47.0); Hemoglobin 14.7 g/dL (12.0-15.0); Mean Corpuscular HGB Conc 32.6 g/dl (32-36); Mean Corpuscular Hemoglobin 33.5 pg (26-34); Mean Corpuscular Volume 102.7 fl (80-100); Mean Platelet Volume 9.5 fl (7.4-10.4); Platelet Count Result 317 k/mm3 (150-375); Red Blood Count 4.39 M/mm3 (4.2-5.4); Red Cell Distribution Width 15.7 % (11.5-14.5); White Blood Count 18.1 K/mm3 (4.5-10.0)
[2021-08-06] MEDS: LEVOTHYROXINE SODIUM 100 MCG, LEVOTHYROXINE SODIUM 75 MCG 175 MCG PO (05:19)
[2021-08-06] MEDS: methylPREDNISolone SOD SUCC 125 MG VIAL 60 MG IV PUSH ×4 (05:19→23:08)
[2021-08-06 05:53] LABS: Blood Urea Nitrogen 26 mg/dL (7-17); Calcium 7.5 mg/dL (8.4-10.2); Carbon Dioxide > 40 mmol/L (22-30); Chloride 81 mmol/L (98-107); Estimated CRCL calculation 62 ml/min; Estimated Glomerular Filt Rate 56; Glucose 161 mg/dL (65-110); Sodium 130 mmol/L (137-145)
[2021-08-06] MEDS: FUROSEMIDE INJ 40 MG/4 ML VIAL IV PUSH ×2 (09:06→18:38)
[2021-08-06] MEDS: acetaZOLAMIDE TAB 250 MG TABLET PO (09:06)
[2021-08-06] MEDS: TRIAMCINOLONE ACET 0.1% OINT 15 GM TUBE 1 APPLIC TOPICAL ×2 (09:09→20:47)
[2021-08-06 10:21] LABS: Alveolar/Arterial O2 Gradient 74.5 mmHg; Base Excess ABG 15.5 mEq/l (+/-2.0); Fractional Inspired Oxygen 28 %; HCO3 ABG 43.5 mEq/l (22.0-26.0); Oxygen Content ABG 18.6 %vol (16.0-22.0); Total Hemoglobin 15.7 g/dL (12.0-18.0); pH ABG 7.439 (7.350-7.450)
[2021-08-06 10:23] LABS: PCO2 ABG 65.7 mmHg (35.0-45.0)
[2021-08-06 10:24] LABS: Oxygen Saturation ABG 83.4 % (95.0-100.0); Oxyhemoglobin 84.4 % THb (90.0-100.0); PO2 ABG 47.6 mmHg (80.0-100.0)
[2021-08-06 10:25] LABS: Device NASAL CANNULA; Modified Allen's Test Pass; Site Drawn RIGHT RADIAL
--- NOTE | 2021-08-06 10:58 | PCRCNOTE ---
Window of time for administration has passed. See next scheduled administration.
--- NOTE | 2021-08-06 12:17 | PM.IMPN ---
Progress Note: A&P Assessment and Plan (1) Acute hypercapnic respiratory failure: Code(s): J96.02 - Acute respiratory failure with hypercapnia Status: Acute Assessment and Plan: Admit to IMU Continuous BiPAP ABG reviewed Repeat ABG in a.m. Try and keep oxygen saturation at 94% Continuous pulse ox Continuous telemetry Bed rest 08/03/2021 interval history: patient is 61-year-old female with history of COPD and chronic hypercapnic respiratory failure admitted with exacerbation of COPD patient is being treated with Solu-Medrol and updraft currently patient on BiPAP, did ABG which showed improvement in patient's CO2 from 114 to to 78, plan is to take the patient off BiPAP briefly to let the patient eat and then S the patient back on BiPAP and continue to monitor, is patient's symptoms improved will taper patient methylprednisone, also there is a concern the patient may have community-acquired pneumonia and being treated with Rocephin and azithromycin. there is also concern patient may have vaginal bleeding will consult lawn caretaker for further recommendation. 08/04/2021 interval history: patient is 61-year-old female with history of COPD and chronic hypercapnic respiratory failure admitted with exacerbation of COPD patient is being treated with Solu-Medrol and updraft currently patient on BiPAP, did ABG which showed improvement in patient's CO2 from 114 to to 78, plan is to take the patient off BiPAP briefly to let the patient eat and then as the patient back on BiPAP and continue to monitor, today today patient's symptoms are improved on nasal cannula will continue to monitor, as patient's symptoms improved will taper patient methylprednisone, also there is a concern the patient may have community-acquired pneumonia and being treated with Rocephin and azithromycin. there is also concern patient may have vaginal bleeding patient was seen OBGYN and biopsy was taken will monitor and further recommendation to follow. 08/05/2021 interval history: today patient again placed on BiPAP repeat ABG showed slight improvement and pCo2 74.9 compared 133 upon arrival, will continue BIPAP and monitor, will CPM with had methylprednisone and updraft, will continue to monitor and further recommendation to follow, there is a concerned the patient has history of hypothyroid will do the TSH, patient had uterus biopsy pending pathology report, will follow-up. 08/06/2021 interval history: today patient again placed on BiPAP repeat ABG showed improvement in pCo2 65.7 compared 133 upon arrival, will continue BIPAP and monitor, will CPM with had methylprednisone and updraft, will continue to monitor and further recommendation to follow, there is a concerned the patient has history of hypothyroid will do the TSH, TSH is 61.2 patient had been noncompliant with her medication, will start the patient levothyroxine, patient had uterus biopsy pending pathology report, will follow-up. (2) COPD (chronic obstructive pulmonary disease): Code(s): J44.9 - Chronic obstructive pulmonary disease, unspecified Status: Inactive Assessment and Plan: Breathing treatments q.4 hours Systemic steroids Added Rocephin and Zithromax Blood cultures in progress BNP ECHOCARDIOGRAM CT HIGH-RESOLUTION OF THE CHEST (3) Pneumonia: Code(s): J18.9 - Pneumonia, unspecified organism Status: Acute Assessment and Plan: Rocephin and Zithromax Blood cultures in progress (4) Abnormal vaginal bleeding in postmenopausal patient: Code(s): N95.0 - Postmenopausal bleeding Status: Acute Assessment and Plan: Vb Net Programmer consult Pelvic ultrasound reviewed Subjective Date/time seen: 08/06/21 12:17 08/03/2021 interval history: patient is 61-year-old female with history of COPD and chronic hypercapnic respiratory failure admitted with exacerbation of COPD patient is being treated with Solu-Medrol and updraft currently patient on BiPAP, did ABG which sh
[2021-08-07] VITALS (20 sets, daily range): BP systolic 92–102; BP diastolic 51–56; PULSE 61–91; RESP 12–26; TEMP 36–36.8; O2SAT 91–99
[2021-08-07] MEDS: IPRATROPIUM BR 0.02% INH SOLN 0.5 MG/2.5 ML VIAL INHALATION ×6 (00:36→23:58)
[2021-08-07] MEDS: ALBUTEROL SULFATE NEB 2.5 MG/0.5 ML INH INHALATION ×6 (00:37→23:58)
[2021-08-07 04:54] LABS: Hematocrit 47.6 % (37.0-47.0); Hemoglobin 14.9 g/dL (12.0-15.0); Mean Corpuscular HGB Conc 31.3 g/dl (32-36); Mean Corpuscular Hemoglobin 32.6 pg (26-34); Mean Corpuscular Volume 104.2 fl (80-100); Mean Platelet Volume 9.3 fl (7.4-10.4); Platelet Count Result 286 k/mm3 (150-375); Red Blood Count 4.57 M/mm3 (4.2-5.4); Red Cell Distribution Width 15.5 % (11.5-14.5); White Blood Count 17.1 K/mm3 (4.5-10.0)
[2021-08-07 05:06] LABS: Anion Gap 7 mmol/L (8-16); Blood Urea Nitrogen 27 mg/dL (7-17); Calcium 7.9 mg/dL (8.4-10.2); Carbon Dioxide 36 mmol/L (22-30); Chloride 85 mmol/L (98-107); Estimated CRCL calculation 62 ml/min; Estimated Glomerular Filt Rate 56; Glucose 184 mg/dL (65-110); Potassium 3.4 mmol/L (3.4-5.0); Sodium 128 mmol/L (137-145)
[2021-08-07 05:18] LABS: Alveolar/Arterial O2 Gradient 271.9 mmHg; Base Excess ABG 13.2 mEq/l (+/-2.0); Fractional Inspired Oxygen 60 %; HCO3 ABG 40.7 mEq/l (22.0-26.0); Oxygen Content ABG 21.4 %vol (16.0-22.0); Oxygen Saturation ABG 96.7 % (95.0-100.0); Oxyhemoglobin 96.2 % THb (90.0-100.0); PO2 ABG 87.8 mmHg (80.0-100.0); PO2 FiO2 Ratio Arterial Blood 1.46 %; Total Hemoglobin 15.8 g/dL (12.0-18.0); pH ABG 7.436 (7.350-7.450)
[2021-08-07 05:21] LABS: PCO2 ABG 61.9 mmHg (35.0-45.0)
[2021-08-07 05:22] LABS: Device NON-INVASIVE VENT; Modified Allen's Test Pass; Non-Invasive Expiratory Pressure 5 CMH2O; Non-Invasive Inspiratory Pressure 20 CMH2O; Non-Invasive Vent Rate 24 /MIN; Site Drawn RIGHT RADIAL
[2021-08-07] MEDS: methylPREDNISolone SOD SUCC 125 MG VIAL 60 MG IV PUSH ×2 (05:55→17:48)
[2021-08-07] MEDS: LEVOTHYROXINE SODIUM 100 MCG, LEVOTHYROXINE SODIUM 75 MCG 175 MCG PO (05:55)
[2021-08-07] MEDS: FUROSEMIDE INJ 40 MG/4 ML VIAL IV PUSH (09:33)
[2021-08-07] MEDS: acetaZOLAMIDE TAB 250 MG TABLET PO (09:33)
[2021-08-07] MEDS: SODIUM CHLORIDE 1 GM TABLET PO ×2 (09:33→17:49)
[2021-08-07] MEDS: TRIAMCINOLONE ACET 0.1% OINT 15 GM TUBE 1 APPLIC TOPICAL ×2 (09:33→20:14)
--- NOTE | 2021-08-07 11:55 | PM.IMPN ---
Progress Note: A&P Assessment and Plan (1) Acute hypercapnic respiratory failure: Code(s): J96.02 - Acute respiratory failure with hypercapnia Status: Acute Assessment and Plan: Admit to IMU Continuous BiPAP ABG reviewed Repeat ABG in a.m. Try and keep oxygen saturation at 94% Continuous pulse ox Continuous telemetry Bed rest 08/03/2021 interval history: patient is 61-year-old female with history of COPD and chronic hypercapnic respiratory failure admitted with exacerbation of COPD patient is being treated with Solu-Medrol and updraft currently patient on BiPAP, did ABG which showed improvement in patient's CO2 from 114 to to 78, plan is to take the patient off BiPAP briefly to let the patient eat and then S the patient back on BiPAP and continue to monitor, is patient's symptoms improved will taper patient methylprednisone, also there is a concern the patient may have community-acquired pneumonia and being treated with Rocephin and azithromycin. there is also concern patient may have vaginal bleeding will consult cloth mender for further recommendation. 08/04/2021 interval history: patient is 61-year-old female with history of COPD and chronic hypercapnic respiratory failure admitted with exacerbation of COPD patient is being treated with Solu-Medrol and updraft currently patient on BiPAP, did ABG which showed improvement in patient's CO2 from 114 to to 78, plan is to take the patient off BiPAP briefly to let the patient eat and then as the patient back on BiPAP and continue to monitor, today today patient's symptoms are improved on nasal cannula will continue to monitor, as patient's symptoms improved will taper patient methylprednisone, also there is a concern the patient may have community-acquired pneumonia and being treated with Rocephin and azithromycin. there is also concern patient may have vaginal bleeding patient was seen OBGYN and biopsy was taken will monitor and further recommendation to follow. 08/05/2021 interval history: today patient again placed on BiPAP repeat ABG showed slight improvement and pCo2 74.9 compared 133 upon arrival, will continue BIPAP and monitor, will CPM with had methylprednisone and updraft, will continue to monitor and further recommendation to follow, there is a concerned the patient has history of hypothyroid will do the TSH, patient had uterus biopsy pending pathology report, will follow-up. 08/06/2021 interval history: today patient again placed on BiPAP repeat ABG showed improvement in pCo2 65.7 compared 133 upon arrival, will continue BIPAP and monitor, will CPM with had methylprednisone and updraft, will continue to monitor and further recommendation to follow, there is a concerned the patient has history of hypothyroid will do the TSH, TSH is 61.2 patient had been noncompliant with her medication, will start the patient levothyroxine, patient had uterus biopsy pending pathology report, will follow-up. 08/07/2021 interval history: today patient again placed on BiPAP and wore last nightr repeat ABG showed improvement in pCo2 61.9 compared 133 upon arrival,And chest x-ray done this morning showed substantially improved and CHF, will reduce Lasix 40 mg q.day from b.i.d. and taper Solu-Medrol 60 mg Q [address] will place the patient on high-flow nasal cannula and wean the oxygen, will continue BIPAP at night and monitor, will CPM there is a concerned the patient has history of hypothyroid will do the TSH, TSH is 61.2 patient had been noncompliant with her medication, will start the patient levothyroxine, patient had uterus biopsy pending pathology report, will follow-up. patient clinical symptoms have improved will transfer patient from IMU to [facility], will continue PT OT and further recommendation to follow. (2) COPD (chronic obstructive pulmonary disease): Code(s): J44.9 - Chronic obstructive pulmonary disease, unspecified Status: Inactive Assessment and Plan: Breathing
[2021-08-07] MEDS: ONDANSETRON INJ 4 MG/2 ML VIAL IV PUSH (18:17)
--- NOTE | 2021-08-07 18:51 | PC.NURSE ---
This patient, Mireya Ramirez, was received from IMU on 08/07/21 at 1830. Report received from JAVIER Davis. Patient/family oriented to unit policies and routines
[2021-08-08] VITALS (18 sets, daily range): BP systolic 98–111; BP diastolic 50–60; PULSE 67–78; RESP 16–26; TEMP 36.1–37.6; O2SAT 92–96
[2021-08-08] MEDS: ALBUTEROL SULFATE NEB 2.5 MG/0.5 ML INH INHALATION ×5 (04:30→20:07)
[2021-08-08] MEDS: IPRATROPIUM BR 0.02% INH SOLN 0.5 MG/2.5 ML VIAL INHALATION ×5 (04:30→20:07)
[2021-08-08] MEDS: LEVOTHYROXINE SODIUM 100 MCG, LEVOTHYROXINE SODIUM 75 MCG 175 MCG PO (05:51)
[2021-08-08 06:52] LABS: Hematocrit 47.7 % (37.0-47.0); Hemoglobin 15.4 g/dL (12.0-15.0); Mean Corpuscular HGB Conc 32.3 g/dl (32-36); Mean Corpuscular Hemoglobin 32.9 pg (26-34); Mean Corpuscular Volume 101.9 fl (80-100); Mean Platelet Volume 9.4 fl (7.4-10.4); Platelet Count Result 296 k/mm3 (150-375); Red Blood Count 4.68 M/mm3 (4.2-5.4); Red Cell Distribution Width 15.5 % (11.5-14.5); White Blood Count 16.7 K/mm3 (4.5-10.0)
[2021-08-08 08:13] LABS: Blood Urea Nitrogen 27 mg/dL (7-17); Calcium 8.4 mg/dL (8.4-10.2); Carbon Dioxide > 40 mmol/L (22-30); Chloride 88 mmol/L (98-107); Estimated CRCL calculation 60 ml/min; Estimated Glomerular Filt Rate 56; Glucose 116 mg/dL (65-110); Potassium 3.6 mmol/L (3.4-5.0); Sodium 133 mmol/L (137-145)
[2021-08-08] MEDS: SODIUM CHLORIDE 1 GM TABLET PO ×2 (10:02→17:36)
[2021-08-08] MEDS: acetaZOLAMIDE TAB 250 MG TABLET PO (10:02)
[2021-08-08] MEDS: FUROSEMIDE INJ 40 MG/4 ML VIAL IV PUSH (10:02)
--- NOTE | 2021-08-08 12:27 | PM.IMPN ---
Progress Note: A&P Assessment and Plan (1) Acute hypercapnic respiratory failure: Code(s): J96.02 - Acute respiratory failure with hypercapnia Status: Acute Assessment and Plan: Admit to IMU Continuous BiPAP ABG reviewed Repeat ABG in a.m. Try and keep oxygen saturation at 94% Continuous pulse ox Continuous telemetry Bed rest 08/03/2021 interval history: patient is 61-year-old female with history of COPD and chronic hypercapnic respiratory failure admitted with exacerbation of COPD patient is being treated with Solu-Medrol and updraft currently patient on BiPAP, did ABG which showed improvement in patient's CO2 from 114 to to 78, plan is to take the patient off BiPAP briefly to let the patient eat and then S the patient back on BiPAP and continue to monitor, is patient's symptoms improved will taper patient methylprednisone, also there is a concern the patient may have community-acquired pneumonia and being treated with Rocephin and azithromycin. there is also concern patient may have vaginal bleeding will consult sales floor associate for further recommendation. 08/04/2021 interval history: patient is 61-year-old female with history of COPD and chronic hypercapnic respiratory failure admitted with exacerbation of COPD patient is being treated with Solu-Medrol and updraft currently patient on BiPAP, did ABG which showed improvement in patient's CO2 from 114 to to 78, plan is to take the patient off BiPAP briefly to let the patient eat and then as the patient back on BiPAP and continue to monitor, today today patient's symptoms are improved on nasal cannula will continue to monitor, as patient's symptoms improved will taper patient methylprednisone, also there is a concern the patient may have community-acquired pneumonia and being treated with Rocephin and azithromycin. there is also concern patient may have vaginal bleeding patient was seen OBGYN and biopsy was taken will monitor and further recommendation to follow. 08/05/2021 interval history: today patient again placed on BiPAP repeat ABG showed slight improvement and pCo2 74.9 compared 133 upon arrival, will continue BIPAP and monitor, will CPM with had methylprednisone and updraft, will continue to monitor and further recommendation to follow, there is a concerned the patient has history of hypothyroid will do the TSH, patient had uterus biopsy pending pathology report, will follow-up. 08/06/2021 interval history: today patient again placed on BiPAP repeat ABG showed improvement in pCo2 65.7 compared 133 upon arrival, will continue BIPAP and monitor, will CPM with had methylprednisone and updraft, will continue to monitor and further recommendation to follow, there is a concerned the patient has history of hypothyroid will do the TSH, TSH is 61.2 patient had been noncompliant with her medication, will start the patient levothyroxine, patient had uterus biopsy pending pathology report, will follow-up. 08/07/2021 interval history: today patient again placed on BiPAP and wore last nightr repeat ABG showed improvement in pCo2 61.9 compared 133 upon arrival,And chest x-ray done this morning showed substantially improved and CHF, will reduce Lasix 40 mg q.day from b.i.d. and taper Solu-Medrol 60 mg Q [address] will place the patient on high-flow nasal cannula and wean the oxygen, will continue BIPAP at night and monitor, will CPM there is a concerned the patient has history of hypothyroid will do the TSH, TSH is 61.2 patient had been noncompliant with her medication, will start the patient levothyroxine, patient had uterus biopsy pending pathology report, will follow-up. patient clinical symptoms have improved will transfer patient from IMU to [facility], will continue PT OT and further recommendation to follow. 08/08/2021 interval history: today in on [place] 10L and wore BIPAP last night repeat ABG is pending and chest x-ray done on 08/07 showed substantially improved in CHF, reduced Lasix 40 mg q.
[2021-08-08] MEDS: methylPREDNISolone SOD SUCC 125 MG VIAL 60 MG IV PUSH ×2 (12:52→17:36)
--- NOTE | 2021-08-08 16:05 | PM.GYNPNOP ---
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 It did not show any abnormal endometrial cells. Since she has had the bleeding for unknown time and persisting then I recommend a dilation and currettage and hysteroscopy procedure. I will attempt to schedule it while she is in the hospital, as my schedule permits, but if unable then it can be done outpatient. She voiced understanding. My office will contact her regarding available time for the procedure. Postoperative Procedures: Procedures Operation Date: 08/11/21 07:30 <No data on this case meets the specified criteria> Time Spent With Patient Time: Total time spent is greater than 50% in coordination of care (as documented) at patient's floor/unit and/or counseling patient: Time with patient: less than 15 minutes WOOD AND WOOD [employer]ODU[employer] LABOURER- PN:Subj Post-Op Subjective Date/time seen: 08/08/21 16:05 She denies any pelvic pain. Exam Const: General: alert and awake WOOD AND WOOD [employer]ODU[employer] LABOURER - PN: Obj Data Vital Signs Vital Signs: Vital Signs - 24 hr 08/07/21 16:59 08/07/21 20:00 08/07/21 20:43 Temperature 96.8 F L Pulse Rate 69 70 Respiratory Rate 14 20 Blood Pressure 97/55 L Pulse Oximetry 91 95 94 08/07/21 20:47 08/07/21 20:53 08/08/21 00:00 Temperature Pulse Rate 70 74 70 Respiratory Rate 22 H 22 H 21 H Blood Pressure Pulse Oximetry 08/08/21 00:07 08/08/21 00:10 08/08/21 04:31 Temperature Pulse Rate 75 72 78 Respiratory Rate 24 H 22 H 26 H Blood Pressure Pulse Oximetry 95 96 08/08/21 04:40 08/08/21 06:00 08/08/21 08:00 Temperature 97.3 F L Pulse Rate 74 73 Respiratory Rate 22 H 20 Blood Pressure 101/60 Pulse Oximetry 96 93 08/08/21 08:35 08/08/21 12:35 08/08/21 12:43 Temperature Pulse Rate 70 72 74 Respiratory Rate 20 25 H 20 Blood Pressure Pulse Oximetry 96 08/08/21 14:10 Temperature 97.0 F L Pulse Rate 70 Respiratory Rate 18 Blood Pressure 111/60 Pulse Oximetry 96 Intake/Output Intake/Output: Intake & Output 08/05/21 08/06/21 08/07/21 08/08/21 23:59 23:59 23:59 23:59 Intake Total 1390 1440 1378 600 Output Total [address] [facility] [phone] Meds/Results Medications: Active Medications Generic Name Dose Route Start Last Admin Trade Name Freq PRN Reason Stop Dose Admin Acetaminophen 650 mg 08/02/21 20:26 Acetaminophen 325 Mg Tablet PO Q4H PRN Mild Pain (1-3) or Fever Hydrocodone Bitart/Acetaminophen 1 tab 08/02/21 20:26 08/05/21 06:50 Hydrocodone/Acetaminophen (*Crx) 5-325 Mg Tablet PO 1 tab Q4H PRN Administration Pain Rated 4-6 Acetazolamide 250 mg 08/05/21 12:15 08/08/21 10:02 Acetazolamide Tab 250 Mg Tablet PO 250 mg QAM PATRICIO Administration Albuterol 2.5 mg 08/03/21 04:00 08/08/21 12:35 Albuterol Sulfate Neb 2.5 Mg/0.5 Ml Inh INHALATION 2.5 mg Q4HRT PATRICIO Administration Furosemide 40 mg 08/07/21 09:00 08/08/21 10:02 Furosemide Inj 40 Mg/4 Ml Vial IV PUSH 40 mg DAILY PATRICIO Administration Ceftriaxone Sodium/Dextrose 1 gm in 50 mls @ 100 mls/hr 08/03/21 18:00 08/07/21 20:00 Rocephin 1 Gm/D5w 50 Ml IVPB Infused Q24H PATRICIO Infusion Azithromycin 500 mg in 250 mls @ 250 mls/hr 08/03/21 18:00 08/07/21 19:49 Zithromax IVPB Infused Q24H PATRICIO Infusion Ipratropium [place] 0.5 mg 08/03/21 04:00 08/08/21 12:35 Ipratropium Br 0.02% Inh Soln 0.5 Mg/2.5 Ml Vial INHALATION 0.5 mg Q4HRT PATRICIO Administration Levothyroxine Sodium 100 mcg/ 175 mcg 08/04/21 06:30 08/08/21 05:51 Levothyroxine Sodium 75 mcg PO 175 mcg DAILY@0630 PATRICIO Administration Methylprednisolone Sodium Succinate 60 mg 08/07/21 17:00 08/08/21 12:52 Methylprednisolone Sod Succ 125 Mg Vial IV PUSH 60 mg BID PATRICIO Administrati
[2021-08-08] MEDS: ACETAMINOPHEN 325 MG TABLET 650 MG PO (18:23)
[2021-08-08] MEDS: TRIAMCINOLONE ACET 0.1% OINT 15 GM TUBE 1 APPLIC TOPICAL (20:06)
[2021-08-09] VITALS (17 sets, daily range): BP systolic 98–104; BP diastolic 51–66; PULSE 64–76; RESP 16–28; TEMP 36.6–37.2; O2SAT 94–99
[2021-08-09] MEDS: ALBUTEROL SULFATE NEB 2.5 MG/0.5 ML INH INHALATION ×4 (00:44→20:00)
[2021-08-09] MEDS: IPRATROPIUM BR 0.02% INH SOLN 0.5 MG/2.5 ML VIAL INHALATION ×4 (00:44→20:00)
[2021-08-09] MEDS: LEVOTHYROXINE SODIUM 100 MCG, LEVOTHYROXINE SODIUM 75 MCG 175 MCG PO (05:16)
[2021-08-09 05:29] LABS: Alveolar/Arterial O2 Gradient 229.1 mmHg; Base Excess ABG 7.9 mEq/l (+/-2.0); Fractional Inspired Oxygen 55 %; Oxygen Content ABG 21.8 %vol (16.0-22.0); Oxygen Saturation ABG 97.3 % (95.0-100.0); Oxyhemoglobin 96.6 % THb (90.0-100.0); PO2 ABG 98.5 mmHg (80.0-100.0); PO2 FiO2 Ratio Arterial Blood 1.79 %; pH ABG 7.399 (7.350-7.450)
[2021-08-09 05:32] LABS: Device NON-INVASIVE VENT; Modified Allen's Test Pass; Site Drawn RIGHT RADIAL
[2021-08-09 05:33] LABS: Non-Invasive Expiratory Pressure 5 CMH2O; Non-Invasive Inspiratory Pressure 20 CMH2O; Non-Invasive Vent Rate 24 /MIN
[2021-08-09 08:50] LABS: Hemoglobin 15.7 g/dL (12.0-15.0); Mean Corpuscular HGB Conc 30.8 g/dl (32-36); Mean Corpuscular Hemoglobin 32.6 pg (26-34); Mean Corpuscular Volume 105.8 fl (80-100); Mean Platelet Volume 9.5 fl (7.4-10.4); Platelet Count Result 265 k/mm3 (150-375); Red Blood Count 4.82 M/mm3 (4.2-5.4); Red Cell Distribution Width 15.4 % (11.5-14.5); White Blood Count 15.7 K/mm3 (4.5-10.0)
[2021-08-09 09:20] LABS: Blood Urea Nitrogen 24 mg/dL (7-17); Calcium 8.5 mg/dL (8.4-10.2); Carbon Dioxide > 40 mmol/L (22-30); Chloride 89 mmol/L (98-107); Estimated CRCL calculation 60 ml/min; Estimated Glomerular Filt Rate 56; Glucose 103 mg/dL (65-110); Potassium 3.6 mmol/L (3.4-5.0); Sodium 134 mmol/L (137-145)
--- NOTE | 2021-08-09 09:33 | PCOTNOTE ---
Attempted to see patient this date at 09:35am for occupational therapy. Patient declined OT services this date stating I just do not feel well, I don't have a lot of pain, I just feel yuck. Attempted to educate patient on benefits of OT patient continued to decline.
--- NOTE | 2021-08-09 09:34 | PCRCNOTE ---
Window of time for administration has passed. See next scheduled administration.
[2021-08-09] MEDS: SODIUM CHLORIDE 1 GM TABLET PO ×2 (09:59→16:57)
[2021-08-09] MEDS: FUROSEMIDE INJ 40 MG/4 ML VIAL IV PUSH (09:59)
[2021-08-09] MEDS: acetaZOLAMIDE TAB 250 MG TABLET PO (09:59)
[2021-08-09] MEDS: methylPREDNISolone SOD SUCC 125 MG VIAL 60 MG IV PUSH ×2 (10:00→16:57)
[2021-08-09] MEDS: TRIAMCINOLONE ACET 0.1% OINT 15 GM TUBE 1 APPLIC TOPICAL (10:00)
--- NOTE | 2021-08-09 12:50 | PM.IMPN ---
Progress Note: A&P Assessment and Plan (1) Acute hypercapnic respiratory failure: Code(s): J96.02 - Acute respiratory failure with hypercapnia Status: Acute Assessment and Plan: Admit to IMU Continuous BiPAP ABG reviewed Repeat ABG in a.m. Try and keep oxygen saturation at 94% Continuous pulse ox Continuous telemetry Bed rest 08/03/2021 interval history: patient is 61-year-old female with history of COPD and chronic hypercapnic respiratory failure admitted with exacerbation of COPD patient is being treated with Solu-Medrol and updraft currently patient on BiPAP, did ABG which showed improvement in patient's CO2 from 114 to to 78, plan is to take the patient off BiPAP briefly to let the patient eat and then S the patient back on BiPAP and continue to monitor, is patient's symptoms improved will taper patient methylprednisone, also there is a concern the patient may have community-acquired pneumonia and being treated with Rocephin and azithromycin. there is also concern patient may have vaginal bleeding will consult phytochemistry professor for further recommendation. 08/04/2021 interval history: patient is 61-year-old female with history of COPD and chronic hypercapnic respiratory failure admitted with exacerbation of COPD patient is being treated with Solu-Medrol and updraft currently patient on BiPAP, did ABG which showed improvement in patient's CO2 from 114 to to 78, plan is to take the patient off BiPAP briefly to let the patient eat and then as the patient back on BiPAP and continue to monitor, today today patient's symptoms are improved on nasal cannula will continue to monitor, as patient's symptoms improved will taper patient methylprednisone, also there is a concern the patient may have community-acquired pneumonia and being treated with Rocephin and azithromycin. there is also concern patient may have vaginal bleeding patient was seen OBGYN and biopsy was taken will monitor and further recommendation to follow. 08/05/2021 interval history: today patient again placed on BiPAP repeat ABG showed slight improvement and pCo2 74.9 compared 133 upon arrival, will continue BIPAP and monitor, will CPM with had methylprednisone and updraft, will continue to monitor and further recommendation to follow, there is a concerned the patient has history of hypothyroid will do the TSH, patient had uterus biopsy pending pathology report, will follow-up. 08/06/2021 interval history: today patient again placed on BiPAP repeat ABG showed improvement in pCo2 65.7 compared 133 upon arrival, will continue BIPAP and monitor, will CPM with had methylprednisone and updraft, will continue to monitor and further recommendation to follow, there is a concerned the patient has history of hypothyroid will do the TSH, TSH is 61.2 patient had been noncompliant with her medication, will start the patient levothyroxine, patient had uterus biopsy pending pathology report, will follow-up. 08/07/2021 interval history: today patient again placed on BiPAP and wore last nightr repeat ABG showed improvement in pCo2 61.9 compared 133 upon arrival,And chest x-ray done this morning showed substantially improved and CHF, will reduce Lasix 40 mg q.day from b.i.d. and taper Solu-Medrol 60 mg Q [address] will [address] the patient on high-flow nasal cannula and wean the oxygen, will continue BIPAP at night and monitor, will CPM there is a concerned the patient has history of hypothyroid will do the TSH, TSH is 61.2 patient had been noncompliant with her medication, will start the patient levothyroxine, patient had uterus biopsy pending pathology report, will follow-up. patient clinical symptoms have improved will transfer patient from IMU to [facility], will continue PT OT and further recommendation to follow. 08/08/2021 interval history: today in on [place] 10L and wore BIPAP last night repeat ABG is pending and chest x-ray done on 08/07 showed substantially improved in CHF, reduced Lasix 40 mg q.
--- NOTE | 2021-08-09 15:52 | PCPTNOTE ---
Patient refused treatment this session stating she was too tired and weak to participate in therapy. Educated patient in the importance of participating in therapy to improve strength and mobility.
--- NOTE | 2021-08-09 17:32 | PCRCNOTE ---
Window of time for administration has passed. See next scheduled administration.
[2021-08-10] VITALS (18 sets, daily range): BP systolic 100–108; BP diastolic 62–69; PULSE 63–77; RESP 16–24; TEMP 36.2–36.8; O2SAT 89–96
[2021-08-10] MEDS: IPRATROPIUM BR 0.02% INH SOLN 0.5 MG/2.5 ML VIAL INHALATION ×6 (00:20→19:49)
[2021-08-10] MEDS: ALBUTEROL SULFATE NEB 2.5 MG/0.5 ML INH INHALATION ×6 (00:20→19:49)
[2021-08-10] MEDS: LEVOTHYROXINE SODIUM 100 MCG, LEVOTHYROXINE SODIUM 75 MCG 175 MCG PO (06:42)
[2021-08-10 07:26] LABS: Hematocrit 49.9 % (37.0-47.0); Hemoglobin 15.8 g/dL (12.0-15.0); Mean Corpuscular HGB Conc 31.7 g/dl (32-36); Mean Corpuscular Hemoglobin 33.1 pg (26-34); Mean Corpuscular Volume 104.4 fl (80-100); Mean Platelet Volume 9.4 fl (7.4-10.4); Platelet Count Result 271 k/mm3 (150-375); Red Blood Count 4.78 M/mm3 (4.2-5.4); Red Cell Distribution Width 15.1 % (11.5-14.5); White Blood Count 16.8 K/mm3 (4.5-10.0)
[2021-08-10 07:36] LABS: Anion Gap 5 mmol/L (8-16); Blood Urea Nitrogen 24 mg/dL (7-17); Calcium 8.7 mg/dL (8.4-10.2); Carbon Dioxide 37 mmol/L (22-30); Chloride 91 mmol/L (98-107); Estimated CRCL calculation 74 ml/min; Estimated Glomerular Filt Rate > 60; Glucose 107 mg/dL (65-110); Potassium 3.2 mmol/L (3.4-5.0); Sodium 133 mmol/L (137-145)
[2021-08-10] MEDS: methylPREDNISolone SOD SUCC 125 MG VIAL 60 MG IV PUSH (08:58)
[2021-08-10] MEDS: TRIAMCINOLONE ACET 0.1% OINT 15 GM TUBE 1 APPLIC TOPICAL ×2 (08:58→20:55)
[2021-08-10] MEDS: FUROSEMIDE INJ 40 MG/4 ML VIAL IV PUSH (08:58)
[2021-08-10] MEDS: SODIUM CHLORIDE 1 GM TABLET PO ×2 (08:59→17:20)
[2021-08-10] MEDS: POTASSIUM CHLORIDE 20 MEQ TABLET 40 MEQ PO (08:59)
--- NOTE | 2021-08-10 12:34 | PCNWS ---
Weekly nutritional screen. Patient screened in for 7 day length of stay. Patient is tolerating current diet with adequate intake. No nutritional needs at this time.
--- NOTE | 2021-08-10 14:34 | P.PNIM_ITS ---
Progress Note: A&P Assessment and Plan (1) Acute hypercapnic respiratory failure: Code(s): J96.02 - Acute respiratory failure with hypercapnia Status: Acute Assessment and Plan: Admit to IMU Continuous BiPAP ABG reviewed Repeat ABG in a.m. Try and keep oxygen saturation at 94% Continuous pulse ox Continuous telemetry Bed rest 08/03/2021 interval history: patient is 61-year-old female with history of COPD and chronic hypercapnic respiratory failure admitted with exacerbation of COPD patient is being treated with Solu-Medrol and updraft currently patient on BiPAP, did ABG which showed improvement in patient's CO2 from 114 to to 78, plan is to take the patient off BiPAP briefly to let the patient eat and then S the patient back on BiPAP and continue to monitor, is patient's symptoms improved will taper patient methylprednisone, also there is a concern the patient may have community-acquired pneumonia and being treated with Rocephin and azithromycin. there is also concern patient may have vaginal bleeding will consult upper cutter for further recommendation. 08/04/2021 interval history: patient is 61-year-old female with history of COPD and chronic hypercapnic respiratory failure admitted with exacerbation of COPD patient is being treated with Solu-Medrol and updraft currently patient on BiPAP, did ABG which showed improvement in patient's CO2 from 114 to to 78, plan is to take the patient off BiPAP briefly to let the patient eat and then as the patient back on BiPAP and continue to monitor, today today patient's symptoms are improved on nasal cannula will continue to monitor, as patient's symptoms improved will taper patient methylprednisone, also there is a concern the patient may have community-acquired pneumonia and being treated with Rocephin and azithromycin. there is also concern patient may have vaginal bleeding patient was seen OBGYN and biopsy was taken will monitor and further recommendation to follow. 08/05/2021 interval history: today patient again placed on BiPAP repeat ABG showed slight improvement and pCo2 74.9 compared 133 upon arrival, will continue BIPAP and monitor, will CPM with had methylprednisone and updraft, will continue to monitor and further recommendation to follow, there is a concerned the patient has history of hypothyroid will do the TSH, patient had uterus biopsy pending pathology report, will follow-up. 08/06/2021 interval history: today patient again placed on BiPAP repeat ABG showed improvement in pCo2 65.7 compared 133 upon arrival, will continue BIPAP and monitor, will CPM with had methylprednisone and updraft, will continue to monitor and further recommendation to follow, there is a concerned the patient has history of hypothyroid will do the TSH, TSH is 61.2 patient had been noncompliant with her medication, will start the patient levothyroxine, patient had uterus biopsy pending pathology report, will follow-up. 08/07/2021 interval history: today patient again placed on BiPAP and wore last nightr repeat ABG showed improvement in pCo2 61.9 compared 133 upon arrival,And chest x-ray done this morning showed substantially improved and CHF, will reduce Lasix 40 mg q.day from b.i.d. and taper Solu-Medrol 60 mg Q [address] will place the patient on high-flow nasal cannula and wean the oxygen, will continue BIPAP at night and monitor, will CPM there is a concerned the patient has history of hypothyroid will do the TSH, TSH is 61.2 patient had been noncompliant with her medication, will start the patient levothyroxine, patient had uterus biopsy pending pathology report, will follow-up. patient cli nical symptoms have improved will transfer patient from IMU to [facility], will continue PT
--- NOTE | 2021-08-10 16:21 | PCPTNOTE ---
Patient refused treatment this session stating I'm just way to tired, I don't know why I feel like I have no energy to do anything Educated patient about importance of mobility and exercises to increase endurance tolerance reduce chances of getting weaker which patient continued to refuse. Stated she usually does better in the AM. RN aware.
[2021-08-11] VITALS (11 sets, daily range): BP systolic 102–129; BP diastolic 62–81; PULSE 62–84; RESP 18–24; TEMP 36.1–36.6; O2SAT 91–99
[2021-08-11] MEDS: ALBUTEROL SULFATE NEB 2.5 MG/0.5 ML INH INHALATION ×4 (00:13→12:50)
[2021-08-11] MEDS: IPRATROPIUM BR 0.02% INH SOLN 0.5 MG/2.5 ML VIAL INHALATION ×4 (00:13→12:50)
[2021-08-11 05:26] LABS: Alveolar/Arterial O2 Gradient 158.4 mmHg; Base Excess ABG 12.6 mEq/l (+/-2.0); Fractional Inspired Oxygen 45 %; HCO3 ABG 39.1 mEq/l (22.0-26.0); Oxygen Content ABG 21.6 %vol (16.0-22.0); Oxygen Saturation ABG 97.7 % (95.0-100.0); Oxyhemoglobin 96.4 % THb (90.0-100.0); PCO2 ABG 55.8 mmHg (35.0-45.0); Total Hemoglobin 15.9 g/dL (12.0-18.0); pH ABG 7.463 (7.350-7.450)
[2021-08-11 05:31] LABS: Device BIPAP; Expiratory Pressure 5 cmH2O; Inspiratory Pressure 20 cmH2O; Modified Allen's Test Pass; Site Drawn LEFT RADIAL
[2021-08-11] MEDS: LEVOTHYROXINE SODIUM 100 MCG, LEVOTHYROXINE SODIUM 75 MCG 175 MCG PO (06:18)
[2021-08-11 06:59] LABS: Hematocrit 48.6 % (37.0-47.0); Hemoglobin 15.3 g/dL (12.0-15.0); Mean Corpuscular HGB Conc 31.5 g/dl (32-36); Mean Corpuscular Volume 104.7 fl (80-100); Mean Platelet Volume 9.4 fl (7.4-10.4); Platelet Count Result 243 k/mm3 (150-375); Red Blood Count 4.64 M/mm3 (4.2-5.4); Red Cell Distribution Width 15.5 % (11.5-14.5); White Blood Count 14.7 K/mm3 (4.5-10.0)
[2021-08-11 07:09] LABS: Anion Gap 4 mmol/L (8-16); Blood Urea Nitrogen 30 mg/dL (7-17); Calcium 8.6 mg/dL (8.4-10.2); Carbon Dioxide 38 mmol/L (22-30); Chloride 91 mmol/L (98-107); Estimated CRCL calculation 74 ml/min; Estimated Glomerular Filt Rate > 60; Glucose 93 mg/dL (65-110); Potassium 3.5 mmol/L (3.4-5.0); Sodium 133 mmol/L (137-145)
--- NOTE | 2021-08-11 09:13 | PM.IMPN ---
Subjective Date/time seen: 08/11/21 09:13 Objective Data Vital Signs Vital Signs: Vital Signs - 24 hr 08/10/21 11:52 08/10/21 12:00 08/10/21 14:00 Temperature 97.3 F L Pulse Rate 64 68 77 Respiratory Rate 20 20 18 Blood Pressure 108/69 Pulse Oximetry 89 L 08/10/21 16:26 08/10/21 16:35 08/10/21 19:50 Temperature Pulse Rate 72 76 76 Respiratory Rate 20 20 18 Blood Pressure Pulse Oximetry 94 08/10/21 20:00 08/10/21 22:00 08/11/21 00:05 Temperature 98.3 F Pulse Rate 76 72 78 Respiratory Rate 18 20 24 H Blood Pressure 108/62 Pulse Oximetry 96 96 08/11/21 00:15 08/11/21 04:05 08/11/21 04:08 Temperature Pulse Rate 78 80 80 Respiratory Rate 24 H 24 H 24 H Blood Pressure Pulse Oximetry 95 08/11/21 04:15 08/11/21 05:33 08/11/21 06:00 Temperature 97.8 F Pulse Rate 80 82 65 Respiratory Rate 24 H 24 H 20 Blood Pressure 129/62 Pulse Oximetry 96 99 08/11/21 08:35 08/11/21 08:55 Temperature Pulse Rate 62 62 Respiratory Rate 20 20 Blood Pressure Pulse Oximetry 95 Intake/Output Intake/Output: Intake & Output 08/08/21 08/09/21 08/10/21 08/11/21 23:59 23:59 23:59 23:59 Intake Total 1380 760 900 240 Output Total 2700 2350 1850 400 Balance -1320 -1590 -950 -160 Meds/Results Medications: Active Medications Generic Name Dose Route Start Last Admin Trade Name Freq PRN Reason Stop Dose Admin Acetaminophen 650 mg 08/02/21 20:26 08/08/21 18:23 Acetaminophen 325 Mg Tablet PO 650 mg Q4H PRN Administration Mild Pain (1-3) or Fever Hydrocodone Bitart/Acetaminophen 1 tab 08/02/21 20:26 08/05/21 06:50 Hydrocodone/Acetaminophen (*Crx) 5-325 Mg Tablet PO 1 tab Q4H PRN Administration Pain Rated 4-6 Albuterol 2.5 mg 08/03/21 04:00 08/11/21 08:35 Albuterol Sulfate Neb 2.5 Mg/0.5 Ml Inh INHALATION 2.5 mg Q4HRT PATRICIO Administration Furosemide 40 mg 08/11/21 09:00 Furosemide 40 Mg Tablet PO DAILY [facility] Ceftriaxone Sodium/Dextrose 1 gm in 50 mls @ 100 mls/hr 08/03/21 18:00 08/10/21 17:49 Rocephin 1 Gm/D5w 50 Ml IVPB Infused Q24H PATRICIO Infusion Azithromycin 500 mg in 250 mls @ 250 mls/hr 08/03/21 18:00 08/10/21 19:05 Zithromax IVPB Infused Q24H [facility] Infusion Ipratropium Elsa 0.5 mg 08/03/21 04:00 08/11/21 08:35 Ipratropium Br 0.02% Inh Soln 0.5 Mg/2.5 Ml Vial INHALATION 0.5 mg Q4HRT [facility] Administration Levothyroxine Sodium 100 mcg/ 175 mcg 08/04/21 06:30 08/11/21 06:18 Levothyroxine Sodium 75 mcg PO 175 mcg DAILY@0630 [facility] Administration Morphine Sulfate 4 mg 08/02/21 20:26 Morphine Sulfate (*Crx) 4 Mg/Ml Inj IV PUSH Q2H PRN Pain Rated 7-10 Ondansetron HCl 4 mg 08/02/21 20:26 08/07/21 18:17 Ondansetron Inj 4 Mg/2 Ml Vial IV PUSH 4 mg Q4H PRN Administration Nausea Prednisone 60 mg 08/11/21 08:00 Prednisone 20 Mg Tablet PO DAILY@0800 [facility] Sodium Chloride 1 gm 08/07/21 09:00 08/10/21 17:20 Sodium Chloride 1 Gm Tablet PO 1 gm BID [facility] Administration Triamcinolone Acetonide 1 applic 08/04/21 09:00 08/10/21 20:55 Triamcinolone Acet 0.1% Oint 15 Gm Tube TOPICAL 1 applic Q12H [facility] Administration Radiology Results: ITS Impressions Pelvis Ultrasound 08/02/21 15:48 IMPRESSION: Thickened endometrium at 1.1 cm, differential diagnosis including hyperplasia, carcinoma, polyp. Consider MATERIALS BUYER consult, histologic correlation. Fibroid. Chest X-Ray 08/07/21 10:32 Impression: 1: Possible small effusion posteriorly on the lateral view. Labs Labs: Laboratory Results - last 24 hr 08/11/21 08/11/2122 05:09 06:16 06:16 WBC 14.7 H RBC 4.64 Hgb 15.3 H Hct 48.6 H MCV 104.7 H MCH 33.0 MCHC 31.5 L RDW 15.5 H Plt Count 243 MPV 9.4 Puncture Site Left radial ABG pH 7.463 H ABG pCO2 55.8 H ABG pO2 99.0 ABG PO2/FiO2 Ratio 2.20 ABG HCO3 39.1 H ABG
[2021-08-11] MEDS: POTASSIUM CHLORIDE 20 MEQ TABLET 40 MEQ PO (09:36)
[2021-08-11] MEDS: predniSONE 20 MG TABLET 60 MG PO (09:37)
[2021-08-11] MEDS: SODIUM CHLORIDE 1 GM TABLET PO (09:37)
[2021-08-11] MEDS: TRIAMCINOLONE ACET 0.1% OINT 15 GM TUBE 1 APPLIC TOPICAL (09:39)
[2021-08-11 10:30] LABS: EDCOVIDSCREEN Negative (Negative)
[2021-08-11] MEDS: FUROSEMIDE 40 MG TABLET PO (10:30)
--- NOTE | 2021-08-20 15:55 | PM.DS ---
DS: Admitting Diagnosis Discharge Date 08/11/21 Admitting Diagnosis shortness of breath DS: Discharge Diagnosis Discharge Diagnosis (1) Acute hypercapnic respiratory failure: Code(s): J96.02 - Acute respiratory failure with hypercapnia Status: Acute Assessment and Plan: Admit to IMU Continuous BiPAP ABG reviewed Repeat ABG in a.m. Try and keep oxygen saturation at 94% Continuous pulse ox Continuous telemetry Bed rest 08/03/2021 interval history: patient is 61-year-old female with history of COPD and chronic hypercapnic respiratory failure admitted with exacerbation of COPD patient is being treated with Solu-Medrol and updraft currently patient on BiPAP, did ABG which showed improvement in patient's CO2 from 114 to to 78, plan is to take the patient off BiPAP briefly to let the patient eat and then S the patient back on BiPAP and continue to monitor, is patient's symptoms improved will taper patient methylprednisone, also there is a concern the patient may have community-acquired pneumonia and being treated with Rocephin and azithromycin. there is also concern patient may have vaginal bleeding will consult journeyman glazier for further recommendation. 08/04/2021 interval history: patient is 61-year-old female with history of COPD and chronic hypercapnic respiratory failure admitted with exacerbation of COPD patient is being treated with Solu-Medrol and updraft currently patient on BiPAP, did ABG which showed improvement in patient's CO2 from 114 to to 78, plan is to take the patient off BiPAP briefly to let the patient eat and then as the patient back on BiPAP and continue to monitor, today today patient's symptoms are improved on nasal cannula will continue to monitor, as patient's symptoms improved will taper patient methylprednisone, also there is a concern the patient may have community-acquired pneumonia and being treated with Rocephin and azithromycin. there is also concern patient may have vaginal bleeding patient was seen OBGYN and biopsy was taken will monitor and further recommendation to follow. 08/05/2021 interval history: today patient again placed on BiPAP repeat ABG showed slight improvement and pCo2 74.9 compared 133 upon arrival, will continue BIPAP and monitor, will CPM with had methylprednisone and updraft, will continue to monitor and further recommendation to follow, there is a concerned the patient has history of hypothyroid will do the TSH, patient had uterus biopsy pending pathology report, will follow-up. 08/06/2021 interval history: today patient again placed on BiPAP repeat ABG showed improvement in pCo2 65.7 compared 133 upon arrival, will continue BIPAP and monitor, will CPM with had methylprednisone and updraft, will continue to monitor and further recommendation to follow, there is a concerned the patient has history of hypothyroid will do the TSH, TSH is 61.2 patient had been noncompliant with her medication, will start the patient levothyroxine, patient had uterus biopsy pending pathology report, will follow-up. 08/07/2021 interval history: today patient again placed on BiPAP and wore last nightr repeat ABG showed improvement in pCo2 61.9 compared 133 upon arrival,And chest x-ray done this morning showed substantially improved and CHF, will reduce Lasix 40 mg q.day from b.i.d. and taper Solu-Medrol 60 mg Q [address] to b[address] will place the patient on high-flow nasal cannula and wean the oxygen, will continue BIPAP at night and monitor, will CPM there is a concerned the patient has history of hypothyroid will do the TSH, TSH is 61.2 patient had been noncompliant with her medication, will start the patient levothyroxine, patient had uterus biopsy pending pathology report, will follow-up. patient clinical symptoms have improved will transfer patient from IMU to [facility], will continue PT OT and further recommendation to follow. 08/08/2021 interval history: today in on [place] 10L and wore BIPAP last night repeat ABG i
== END 2021-08-11 15:35 | DRG 952 ==
LOC: ANHED 20:13 → ANHIMU 21:08 → ANH3MEDSUR 08-08 09:39 → ANHIMU 08-12 10:28
PROVIDERS: Admitting Provider Internal Medicine; Emergency Provider Emergency Medicine; Visit Provider Family Medicine
DX: J96.22 Acute and chronic respiratory failure with hypercapnia (principal); Z20.822 Contact with and (suspected) exposure to COVID-19; F17.210 Nicotine dependence, cigarettes, uncomplicated; J18.9 Pneumonia, unspecified organism; J44.0 Chronic obstructive pulmonary disease with (acute) lower respiratory infection; N95.0 Postmenopausal bleeding; E66.01 Morbid (severe) obesity due to excess calories; N85.8 Other specified noninflammatory disorders of uterus; I50.9 Heart failure, unspecified; Z91.14 Patient's other noncompliance with medication regimen; Z79.899 Other long term (current) drug therapy
CPT/HCPCS: 36415; 36600; 71045; 71046; 76856; 80048; 80053; 82375; 82805; 83050; 83880; 84443; 85025; 85027; 85380; 85610; 85730; 86850; 86900; 86901; 87040; 87426; 88305; 94002; 94003; 94640; 96365; 96367; 96374; 96375; 97110; 97162; 97165; 97530; 97535; 99285; A9270; C8929; C9803; G0378; G0379; J0456; J0696; J1940; J2405; J2930; J7512; Q9957; U0003; U0005

== ENCOUNTER 2022-02-27 10:50 | Inpatient (IN) | payer OTHER, SELFPAY ==
[2022-02-27] VITALS (42 sets, daily range): BP systolic 103–138; BP diastolic 62–110; PULSE 65–101; RESP 11–33; TEMP 36.5–36.8; O2SAT 2–100; BMI 47.2
--- NOTE | ~2022-02-27 | XR_ITS ---
EXAMINATION: XR chest 2V Exam Date/Time: 02/27/2022 14:55 CDT HISTORY: leg wound SOB Comparison: 08/07/2021. RESULT: Lines, tubes, and devices: None. Lungs and pleura: Hazy bilateral lower lung opacities, with patchy subsegmental airspace opacities. Left costophrenic angle blunting. Cardiomediastinal silhouette: Stable. Other: No acute osseous or upper abdominal finding. IMPRESSION: Pulmonary opacities may reflect edema with atelectasis or infection. Small left pleural effusion. Reviewed, dictated and finalized at location K.
--- NOTE | ~2022-02-27 | CT_ITS ---
EXAMINATION: CTA chest PE protocol DATE: 02/28/2022 11:10 INDICATION: Shortness of breath. TECHNIQUE: Computed tomography angiography (CTA) of the chest was performed with 100 mL Omnipaque-350 intravenous contrast timed to evaluate the pulmonary arteries. Coronal maximum intensity projection 3D-reconstructions were created by the technologist. Automated exposure control and iterative reconst ruction technique were employed. The dose-length product was 980.76 mGy-cm. COMPARISON: Chest 2 views 02/27/2022 FINDINGS: The lungs demonstrate mild atelectasis. No pleural effusion. The heart size is normal. No p ericardial effusion. There is no pulmonary embolus. There is mild thoracic spondylosis. IMPRESSION: 1. No pulmonary embolus. Reviewed, dictated and finalized at location A. IMPRESSION: 1. No pulmonary embolus.
--- NOTE | ~2022-02-27 | US_ITS ---
EXAMINATION: US venous doppler [facility] DATE: 02/27/2022 14:32 INDICATION: Edema lower extremities with pain . TECHNIQUE: Grayscale images without and with compression and Doppler images of the bilateral lower ex tremity veins were obtained. COMPARISON: None FINDINGS: The right common femoral vein, profunda (deep) femoral vein, femoral vein, popliteal vein, peroneal v ein, posterior tibial veins, gastrocnemius vein, and greater saphenous vein are patent. The left common femoral vein, profunda femoral vein, femoral vein, popliteal vein, peroneal vein, pos terior tibial veins, gastrocnemius vein, and greater saphenous vein are patent. IMPRESSION: 1. Patent bilateral lower extremity veins. No evidence of deep venous thrombosis. 2. Bilateral leg edema. Reviewed, dictated and finalized at location K. IMPRESSION: 1. Patent bilateral lower extremity veins. No evidence of deep venous thrombos is. 2. Bilateral leg edema.
--- NOTE | 2022-02-27 11:12 | ECG_ITS ---
Measurements Intervals [place] Rate: 71 P: 55 TN: 178 QRS: 80 QRSD: 85 T: 3 QT: 358 QTc: 392 Interpretive Statements SINUS RHYTHM LOW QRS VOLTAGE IN PRECORDIAL LEADS [QRS DEFLECTION < 1.0 mV IN CHEST LEADS] ANTEROSEPTAL MYOCARDIAL INFARCTION , OF INDETERMINATE AGE [40+ ms Q WAVE IN V1-V4] INTERPRETATION BASED ON A DEFAULT AGE OF 40 YEARS NO PREVIOUS ECG AVAILABLE FOR COMPARISON Electronically Signed On 02-28-2022 20:23:54 CDT by Trina Aguiar M.D.
--- NOTE | 2022-02-27 12:36 | ED.EXTPRO ---
HPI - Extremity Problem General Chief complaint: Extremity Problem,Nontraumatic Stated complaint: right leg wound with swelling Time Seen by Provider: 02/27/22 12:07 Source: patient and RN notes reviewed Mode of arrival: ambulatory Limitations: no limitations History of Present Illness HPI Narrative: Patient is 61 years old white female brought to the emergency room by her son because he was not screaming at her and insisted that she needed to go to the emergency room to see what is going on with her lower extremities. Patient reports swelling and redness of the lower extremities over 3 years with a lot of sores. She denies any fever, chills, nausea, vomiting, chest pain, shortness of breath. Currently patient is asymptomatic. History of hypothyroidism, was told that because she used to be a smoker 3 years ago high likely having COPD. Patient is not on any medication for COPD, have oxygen tank at home use it intermittently when she feels like she needs it. She is telling me that she is able to move around in her house and talk without any shortness of breath or feeling that she needs oxygen. Patient does not know the name of her doctor. Related Data Home Medications Medication Instructions Recorded Confirmed albuterol sulfate 90 mcg/actuation 2 puff inhalation Q4H PRN 08/04/21 10/17/21 aerosol inhaler Shortness Of Breath Or Wheezing glycopyrrolate 9 mcg-formoterol 2 puff inhalation Q12H 08/04/21 10/17/21 4.8 mcg HFA aerosol inhaler (Bevespi Aerosphere) triamcinolone acetonide 0.1 % 1 applic topical Q12H 08/04/21 10/17/21 topical ointment Allergies Allergy/AdvReac Type Severity Reaction Status Date / Time No Known Allergies Allergy Verified 10/05/21 14:20 Review of Systems Review of Systems: All systems reviewed & are unremarkable except as noted in HPI and below PMFSH Past Medical History Medical History COPD (chronic obstructive pulmonary disease) Thyroid disorder TIA (transient ischemic attack) Surgical History Surgical History History of 2 sections S/P oophorectomy S/P tubal ligation Surgical history unknown Family History Family History Other Alcoholism Cerebrovascular accident Diabetes mellitus History of cancer Social History Social History Smoking packs per day: 1 Smoking cigarettes per day: 20.0 Years smoked: 45 Smoking pack-years: 45.00 Smoking status: Former smoker Alcohol intake: never Substance use: current Substance use type: marijuana Last use: 07/2021 Spiritual care concerns: No Exam Narrative: General appearance: Well-developed, well-nourished Skin: Lower extremity showed chronic stasis dermatitis with few scattered superficial ulcerations 2 through 5 mm each. No purulent discharge, no blisters, no warmth, diffuse tenderness with deep palpation. Head: Normocephalic, nontraumatic Eyes: Clear conjunctiva ENT: Oropharynx normal, ears normal, nose normal Neck: Supple, nontender Chest and respiratory: Airway patent, no respiratory distress, no accessory muscle use Heart: Regular rate/rhythm Abdomen: Soft, nontender, no organomegaly, quiet bowel sounds Vascular: Normal peripheral pulses, normal capillary refill. Musculoskeletal: Normal range of motion, nontender back Neurologic: Alert and oriented ?3, APPELLATE LAW CLERK is normal as tested, no gross motor deficit Course Vital Signs Vital signs: Vital Signs Temperature 36.8 C 02/27/22 10:53 Pulse Rate 79
[2022-02-27 13:29] LABS: Alveolar/Arterial O2 Gradient 1.4 mmHg; Base Excess ABG 8.7 mEq/l (+/-2.0); Fractional Inspired Oxygen 21 %; HCO3 ABG 38.7 mEq/l (22.0-26.0); PO2 ABG 51.1 mmHg (80.0-100.0); PO2 FiO2 Ratio Arterial Blood 2.43 %; Total Hemoglobin 14.7 g/dL (12.0-18.0)
[2022-02-27 13:39] LABS: pH ABG 7.317 (7.350-7.450)
[2022-02-27 13:52] LABS: PCO2 ABG 73.9 mmHg (35.0-45.0)
--- NOTE | 2022-02-27 13:52 | PC.NURSE ---
patient taken to US, will attempt to obtain blood and IV when patient returns to ED>
[2022-02-27 13:53] LABS: Oxygen Saturation ABG 85.5 % (95.0-100.0)
[2022-02-27 13:55] LABS: Device ROOM AIR; Modified Allen's Test Pass; Oxyhemoglobin 86.2 % THb (90.0-100.0); Site Drawn RIGHT RADIAL
--- NOTE | 2022-02-27 14:35 | PC.NURSE ---
Phlebotomy called due to patient being stuck from blood multiple times without success. Message left at this time.
[2022-02-27 19:34] LABS: Basophils Absolute Auto 0.1 K/mm3 (0.0-0.1); Eosinophils Absolute Auto 0.3 K/mm3 (0-0.3); Eosinophils Percent Auto 2.4 % (0-4.4); Hematocrit 48.5 % (37.0-47.0); Immature Granulocyte Absolute 0.04 K/mm3 (0.00-0.031); Immature Granulocyte Percent A 0.4 % (0-0.5); Lymphocytes Percent Auto 14.9 % (18.3-44.2); Mean Corpuscular HGB Conc 28.9 g/dl (32-36); Mean Corpuscular Hemoglobin 27.6 pg (26-34); Mean Corpuscular Volume 95.7 fl (80-100); Mean Platelet Volume 9.8 fl (7.4-10.4); Monocytes Absolute Auto 0.7 K/mm3 (0.1-0.6); Monocytes Percent Auto 6.4 % (2.6-8.5); Neutrophils Absolute Auto 8.6 K/mm3 (1.3-6.7); Neutrophils Percent Auto 74.9 % (45.5-73.1); Platelet Count Result 276 k/mm3 (150-375); Red Blood Count 5.07 M/mm3 (4.2-5.4); Red Cell Distribution Width 20.4 % (11.5-14.5); White Blood Count 11.4 K/mm3 (4.5-10.0)
[2022-02-27 19:48] LABS: Lactic Acid Reflex 1.4 mmol/L (0.7-2.0)
[2022-02-27 19:50] LABS: Alanine Aminotransferase 13 U/L (6-35); Albumin Level 4.1 g/dL (3.5-5.1); Alkaline Phosphatase 85 U/L (38-126); Anion Gap 1 mmol/L (8-16); Aspartate Amino Transferase 22 U/L (14-36); Bilirubin,Total 0.4 mg/dL (0.2-1.3); Blood Urea Nitrogen 11 mg/dL (7-17); Calcium 8.3 mg/dL (8.4-10.2); Carbon Dioxide 38 mmol/L (22-30); Chloride 94 mmol/L (98-107); Estimated CRCL calculation 68 ml/min; Estimated Glomerular Filt Rate > 60; Glucose 94 mg/dL (65-110); Potassium 4.6 mmol/L (3.4-5.0); Sodium 133 mmol/L (137-145)
[2022-02-27 19:58] LABS: NT Pro B Type Natriuretic Pept 23 pg/mL (5-100)
[2022-02-27 20:01] LABS: Platelet Estimate Adequate (Adequate)
[2022-02-27 20:02] LABS: Anisocytosis 2+ (NORMAL); Stomatocytes 1+ (NORMAL)
--- NOTE | 2022-02-27 20:34 | PM.IMHP ---
H&P: HPI History of Present Illness Date/Time: 02/27/22 20:34 Chief Complaint: Bilateral lower extremity swelling Narrative: This is a 61-year-old female with past medical history significant for morbid obesity, COPD/ emphysema, former smoker. patient presents to the emergency room due to bilateral lower extremity swelling, sores, redness, now for several weeks duration, notice also green discoloration to on of the sores, patient states that that was the only result she presented to emergency room however in the emergency room she was found to be saturating in the low 80s an ABG showed a pH of 7.3, a pCO2 of 73, a PO2 of 83. Patient was placed on BiPAP. Patient was on BiPAP at the time of my visit history taking was limited by this. PRELIMINARY WORKUP WAS SIGNIFICANT FOR CHEST X-RAY WAS REPORTED : IMPRESSION: Pulmonary opacities may reflect edema with atelectasis or infection. Small left pleural effusion. a venous Doppler of bilateral lower extremity was reported IMPRESSION: 1.? Patent bilateral lower extremity veins. No evidence of deep venous thrombosis. 2. Bilateral leg edema. Review of Systems Review of Systems: ROS unobtainable: Yes unobtainable due to medical condition ( PATIENT IS ON BIPAP) PMFSH Past Medical History Medical History (Updated 02/28/22 @ 03:22 by Richard Ingram MD) COPD (chronic obstructive pulmonary disease) Thyroid disorder TIA (transient ischemic attack) Surgical History Surgical History History of 2 sections S/P oophorectomy S/P tubal ligation Surgical history unknown Family History Family History (Updated 02/27/22 @ 22:40 by Margy Solares RN) Mother Dementia History of cancer Social History Social History Smoking packs per day: 1 Smoking cigarettes per day: 20.0 Years smoked: 45 Smoking pack-years: 45.00 Smoking status: Former smoker Tobacco type: cigarettes Smoking end date: 02/27/21 Alcohol intake: never Substance use: former Substance use type: marijuana Last use: 07/2021 Spiritual care concerns: No Meds Home Medications and Allergies Home Medications Medication Instructions Recorded Confirmed Type albuterol sulfate 90 mcg/actuation 2 puff inhalation Q4H PRN 08/04/21 02/27/22 History aerosol inhaler Shortness Of Breath Or Wheezing levothyroxine 150 mcg tablet 150 mcg PO DAILY 02/27/22 02/27/22 History Allergies Allergy/AdvReac Type Severity Reaction Status Date / Time No Known Allergies Allergy Verified 10/05/21 14:20 Vital Signs Vital Signs - 24 hr 02/27/22 10:53 02/27/22 11:07 02/27/22 13:52 Temperature 98.2 F Pulse Rate 79 Respiratory Rate 18 Blood Pressure 138/81 Pulse Oximetry 87 L 98 2 L Oxygen Delivery Room Air Nasal Cannula Room Air Oxygen Flow Rate 2 02/27/22 11:31 02/27/22 14:24 02/27/22 14:33 Temperature Pulse Rate 78 69 70 Respiratory Rate 19 25 H 19 Blood Pressure Pulse Oximetry 98 99 100 Oxygen Delivery Oxygen Flow Rate 02/27/22 15:10 02/27/22 15:21 02/27/22 15:22 Temperature Pulse Rate 70 68 Respiratory Rate 14 13 Blood Pressure 118/76 Pulse Oximetry 100 98 100 Oxygen Delivery Oxygen Flow Rate 02/27/22 15:30 02/27/22 15:45 02/27/22 16:14 Temperature Pulse Rate 66 72 68 Respiratory Rate 17 13 16 Blood Pressure Pulse Oximetry 100 100 95 Oxygen Delivery BiPAP Oxygen Flow Rate 02/27/22 17:59 02/27/22 18:25 02/27/22 16:00 Temperature Pulse Rate 68 72 Respiratory Rate 16 12 Blood Pressure Pulse Oximetry 98 100 Oxygen Delivery BiPAP BiPAP Oxygen Flow Rate 02/27/22 16:16 02/27/22 16:30 02/27/22 16:45 Temperature Pulse Rate 67 67 65 Respiratory Rate 11 L 33 H 16 Blood Pressure Pulse Oximetry 100 100 100 Oxygen Delivery Oxygen Flow Rate 02/27/22 17:11 02/27/22 17
[2022-02-27] MEDS: ALBUTEROL SULFATE NEB 2.5 MG/3 ML INH (21:00)
[2022-02-27] MEDS: IPRATROPIUM BR 0.02% INH SOLN 0.5 MG/2.5 ML VIAL INHALATION (21:00)
--- NOTE | 2022-02-27 22:23 | ADMGEN ---
This patient, Mireya Ramirez, was admitted to IMU Room 202-01. Patient/family oriented to hospital policies and general routines including ID bracelet, bed and alarms, visiting hours, pain management, procedures, bathroom and other care routines, personal items, smoking policy, room service/diet, and visiting hours. Information on how to activate the Rapid Response Team has been discussed. Patient/Family are encouraged to report perceived risks to care and to ask questions if they do not understand what they are told or what they should do.
[2022-02-28] VITALS (23 sets, daily range): BP systolic 97–121; BP diastolic 42–79; PULSE 69–94; RESP 15–22; TEMP 36.3–36.5; O2SAT 91–100
--- NOTE | 2022-02-28 | ECHO_ITS ---
Patient Info Name: Mireya Ramirez Age: 61 years : 1960 Gender: Female Ht: 62 in Wt: 258 lbs BSA: 2.33 m2 HR: 80 bpm BP: 114 / 79 mmHg Exam Date: 02/28/2022 10:18 AM Exam Location: [facility] Patient Status: Inpatient Admit Date: 02/28/2022 Staff Ordering Physician: Richard Ingram MD Grain Manager: Manisha Santos RDCS Attending Provider: Richard Ingram MD Referring Physician: Juan Jose SANTANA; Exam Type: CA echo doppler color flow Study Info Indications R06.02 - Shortness of breath Complete two-dimensional, color flow and Doppler transthoracic echocardiogram is performed. Summary 1. Complete two-dimensional, color flow and Doppler transthoracic echocardiogram is performed. 2. Technically difficult study, poor image quality. Cardiac chambers and valves are not well visualized. Overall LV systolic function appears to be preserved with ejection fraction 65-70% on visual estimation. Consider contrast enhanced echo. Left Ventricle Left ventricular systolic function is normal, estimated at 65-70%. Right Ventricle Right ventricular chamber dimension is normal. Right ventricular systolic function is normal. Left Atria Left atrial chamber dimension is not well visualized. Right Atria Right atrial chamber dimension is not well visualized. Aortic Valve The aortic valve is not well visualized. Pulmonic Valve The pulmonic valve is not well visualized. Mitral Valve The mitral valve has not well visualized. Tricuspid Valve The tricuspid valve leaflets are not well visualized. Pericardium/Pleural The pericardium appears normal. Aorta The aortic root size at the sinus of Valsalva is normal. Report Signatures
[2022-02-28] MEDS: cefTRIAXone 2 GM in SODIUM CHLORIDE 0.9% IV 100 ML 200 ML IVPB ×2 (03:12→22:03)
[2022-02-28] MEDS: IPRATROPIUM BR 0.02% INH SOLN 0.5 MG/2.5 ML VIAL INHALATION ×4 (03:40→20:44)
[2022-02-28] MEDS: ALBUTEROL SULFATE NEB 2.5 MG/3 ML INH 5 MG INHALATION ×4 (03:40→20:44)
[2022-02-28] MEDS: LEVOTHYROXINE SODIUM 150 MCG TABLET PO (05:45)
[2022-02-28 06:21] LABS: NT Pro B Type Natriuretic Pept 25 pg/mL (5-100)
[2022-02-28] MEDS: FUROSEMIDE INJ 40 MG/4 ML VIAL IV PUSH ×2 (10:25→19:40)
[2022-02-28] MEDS: NEOMYCIN/POLYMYXIN/BACITRACIN OINTMENT 15 GM TUBE 1 APPLIC TOPICAL (10:26)
--- NOTE | 2022-02-28 11:57 | PM.IMPN ---
Progress Note: A&P Assessment and Plan (1) Acute on chronic respiratory failure with hypoxia and hypercapnia: Code(s): J96.21 - Acute and chronic respiratory failure with hypoxia; J96.22 - Acute and chronic respiratory failure with hypercapnia Status: Acute Assessment and Plan: Currently on 3L of oxygen will obtain CT angio of the chest -pending venous Doppler with no acute DVT started on antibiotics due to infiltrate of the lung diuresing as well According to the patient her respiratory status is at her baseline. She is supposed to wear oxygen at home but she is noncompliant. (2) Chronic venous stasis dermatitis of both lower extremities: Code(s): I87.2 - Venous insufficiency (chronic) (peripheral) Status: Acute Assessment and Plan: wound care consult (3) COPD (chronic obstructive pulmonary disease): Code(s): J44.9 - Chronic obstructive pulmonary disease, unspecified Status: Acute Assessment and Plan: breathing treatments not actively wheezing (4) Morbid obesity with BMI of 45.0-49.9, adult: Code(s): E66.01 - Morbid (severe) obesity due to excess calories; Z68.42 - Body mass index [BMI] 45.0-49.9, adult Status: Acute Assessment and Plan: lifestyle and diet modifications Subjective Date/time seen: 02/28/22 11:57 She reports her respiratory status is at her baseline. She is supposed to wear oxygen home but is noncompliant. Her main concern is her leg ulcer on her right leg Exam Narrative: patient is sitting by the edge of the stretcher BiPAP on Const: General: cooperative, comfortable, no acute distress, well developed, alert, awake and ill appearing acutely Nutritional Appearance: obese morbidly obese Orientation/consciousness: patient oriented x3 HENMT: Head: normal to inspection, normocephalic and atraumatic Ears: hearing grossly normal bilaterally Face and sinus: normal facial exam Other: BiPAP mask on Eyes: General: appearance normal, both eyes and all related structures Pupils: Equal, round and reactive pupils present EOM: EOMs intact bilaterally Neck: Neck: full ROM, no lymphadenopathy and no JVD Thyroid: thyroid normal Lymphatic: no lymphadenopathy noted Resp: Effort & Inspection: normal respiratory effort and able to speak in complete sentences Auscultation: diminished lung sounds Cardio: Jugular venous distension: no JVD Rate: regular rate Rhythm: regular rhythm Heart sounds: S1 normal heart sound present and S2 normal heart sound present GI: Inspection: Pannus present and obesity : General: Yes deferred Skin: Other: bilateral lower extremity chronic changes and discoloration sores are present as well Neuro: General: patient oriented x3 and CN's II-XI intact bilaterally Cranial nerves: Yes CN's II-XII intact bilaterally and Yes Equal, round and reactive pupils present Cognition (Neuro): normal cognition Speech: normal speech Gait exam (Neuro): Normal gait present Motor exam (neuro): 5/5 motor strength present throughout Extrem: General: edema (2+) bilateral Objective Data Vital Signs Vital Signs: Vital Signs - 24 hr 02/27/22 13:52 02/27/22 14:24 02/27/22 14:33 Temperature Pulse Rate 69 70 Respiratory Rate 25 H 19 Blood Pressure Pulse Oximetry 2 L 99 100 Oxygen Delivery Room Air Oxygen Flow Rate Fraction of Inspired Oxygen 02/27/22 15:10 02/27/22 15:21 02/27/22 15:22 Temperature Pulse Rate 70 68 Respiratory Rate 14 13 Blood Pressure 118/76 Pulse Oximetry 100 98 100 Oxygen Delivery Oxygen Flow Rate Fraction of Inspired Oxygen 02/27/22 15:30 02/27/22 15:45 02/27/22 16:14 Temperature Pulse Rate 66 72 68 Respiratory Rate 17 13 16 Blood Pressure Pulse Oximetry 100 100 95 Oxygen Delivery BiPAP Oxygen Flow Rate Fraction of Inspired Oxygen 02/27/22 17:59 02/27/22 18:25 02/27/22 16:00 Temperature Pulse Rate 68 72 Respira
[2022-02-28] MEDS: ACETAMINOPHEN 325 MG TABLET 650 MG PO (20:32)
[2022-03-01] VITALS (27 sets, daily range): BP systolic 92–125; BP diastolic 48–80; PULSE 72–100; RESP 16–25; TEMP 36–36.9; O2SAT 92–99
[2022-03-01] MEDS: IPRATROPIUM BR 0.02% INH SOLN 0.5 MG/2.5 ML VIAL INHALATION ×2 (02:31→08:45)
[2022-03-01] MEDS: ALBUTEROL SULFATE NEB 2.5 MG/3 ML INH 5 MG INHALATION ×2 (02:31→08:46)
[2022-03-01 06:21] LABS: Hematocrit 48.4 % (37.0-47.0); Mean Corpuscular HGB Conc 28.9 g/dl (32-36); Mean Corpuscular Hemoglobin 27.7 pg (26-34); Mean Corpuscular Volume 95.8 fl (80-100); Mean Platelet Volume 9.6 fl (7.4-10.4); Platelet Count Result 238 k/mm3 (150-375); Red Blood Count 5.05 M/mm3 (4.2-5.4); Red Cell Distribution Width 19.7 % (11.5-14.5); White Blood Count 8.6 K/mm3 (4.5-10.0)
[2022-03-01 06:46] LABS: Blood Urea Nitrogen 10 mg/dL (7-17); Calcium 8.1 mg/dL (8.4-10.2); Carbon Dioxide > 40 mmol/L (22-30); Chloride 87 mmol/L (98-107); Estimated CRCL calculation 70 ml/min; Estimated Glomerular Filt Rate > 60; Glucose 84 mg/dL (65-110); Potassium 3.7 mmol/L (3.4-5.0); Sodium 139 mmol/L (137-145)
[2022-03-01] MEDS: FUROSEMIDE INJ 40 MG/4 ML VIAL IV PUSH (08:14)
--- NOTE | 2022-03-01 12:25 | PM.IMPN ---
Progress Note: A&P Assessment and Plan (1) Acute on chronic respiratory failure with hypoxia and hypercapnia: Code(s): J96.21 - Acute and chronic respiratory failure with hypoxia; J96.22 - Acute and chronic respiratory failure with hypercapnia Status: Acute Assessment and Plan: Patient states that she does not wear oxygen at home but according to the notes she has an oxygen tank at home that she uses intermittently. Blood gas on admission shows a pH is 7.32/74/51 on room air. She was started on BiPAP but states that she can not tolerate it. She remains on 3L of oxygen. CTA Chest showing atelectasis but no pulmonary embolism. Venous Doppler with no acute DVT. Echo showing EF 65-70% with normal RV size and function (It was a very limited study). She was started on antibiotics due to infiltrate of the lung but not seen by CT. BNP normal. On IV Lasix and diuresing well. She remains on 3L but probably more of a baseline then acute. Wean o2 as toelrated. Home O2 evaluation close to discharge. Repeat ABG. Pulmonary consult. Stop Rocephin. Finish Azithro. Stop lasix (2) Chronic venous stasis dermatitis of both lower extremities: Code(s): I87.2 - Venous insufficiency (chronic) (peripheral) Status: Acute Assessment and Plan: Patient has chronic venous stasis dermatitis in the bilateral lower extremities. She also has findings more consistent with psoriasis. There is a erythematous patch noted her lower pannus which could be cellulitis. Wound Care has been consulted and appreciate their input. Will stop Rocephin start Keflex. (3) COPD (chronic obstructive pulmonary disease): Code(s): J44.9 - Chronic obstructive pulmonary disease, unspecified Status: Acute Assessment and Plan: Patient is not actively wheezing. She does have chronic CO2 retention which could be from COPD but suspect more likely she has obesity hypoventilation syndrome. Echo does not show pulmonary HTN but possible. Continue nebulizer treatments. Will add inhalers. Pulmonary consult. Stop Lasix due to contraction alkalosis. (4) Morbid obesity with BMI of 45.0-49.9, adult: Code(s): E66.01 - Morbid (severe) obesity due to excess calories; Z68.42 - Body mass index [BMI] 45.0-49.9, adult Status: Acute Assessment and Plan: BMI 47. Her obesity is contributing to her other medical problems. Encouraged Lifestyle and diet modifications. (5) Hypothyroidism: Code(s): E03.9 - Hypothyroidism, unspecified Status: Acute Assessment and Plan: TSH in August was 61. Patient has a history of noncompliance. Her levothyroxine has been continued here. Will repeat TSH tomorrow. Plan DVT prophylaxis: Lovenox Code status: Full Diet: Heart healthy Subjective Date/time seen: 03/01/22 12:25 Interval history: 61yo female with COPD and morbid obesity here for shortness of breath. Patient states that she has ?some machine at home? but she is not sure if she is on BiPAP at home. She does not wear a mask at night. She is not on home oxygen. She does not see a automatic clipper although she has seen one in the past. She denies chest pain or shortness of breath today. No nausea or vomiting. She denies cough. She is not tolerating the BiPAP well. Exam Narrative: AF 98.4 99/48 77 18 97% 3L Gen - NARD lying semi recumbent in bed asleep without BiPAP on Chest -distant but clear breath sounds. Normal respiratory rate. No conversational dyspnea. CV - RRR S1/S2. Telemetry showing no significant dysrhythmias. Abd -soft. Obese. Positive bowel sounds. Nontender. Ext -1 to 2+ pedal edema. Psych - Nml mood but odd affect Skin - Warm and dry. Erythematous pink patch to lower pannus does not track into the groin. Padron scaly lesions noted in the bilateral thighs left worse than right consistent with psoriasis. More distal lower extremity multiple dried eschars noted. There is a larger r
[2022-03-01] MEDS: NEOMYCIN/POLYMYXIN/BACITRACIN OINTMENT 15 GM TUBE 1 APPLIC TOPICAL (12:45)
[2022-03-01] MEDS: ENOXAPARIN 40 MG/0.4 ML SYRINGE SUB-Q (13:55)
[2022-03-01] MEDS: ALBUTEROL SULFATE NEB 2.5 MG/3 ML INH INHALATION ×2 (14:29→20:26)
--- NOTE | 2022-03-01 16:22 | PM.CNPUL ---
Assessment and Plan Assessment and plan (1) Morbid obesity with BMI of 45.0-49.9, adult: Code(s): E66.01 - Morbid (severe) obesity due to excess calories; Z68.42 - Body mass index [BMI] 45.0-49.9, adult Status: Acute (2) Acute on chronic respiratory failure with hypoxia and hypercapnia: Code(s): J96.21 - Acute and chronic respiratory failure with hypoxia; J96.22 - Acute and chronic respiratory failure with hypercapnia Status: Acute Assessment and Plan: 61-year-old morbidly obese female with a history of hypoxemic respiratory failure, noncompliant with home oxygen therapy presented with lower extremity edema and acute on chronic hypercapnic respiratory failure. Chest CT showed small basal atelectasis mostly in the left lung. Patient has hypoxemic hypercarbic respiratory failure is most likely related to obesity hypoventilation. There is no evidence of radiographic emphysema on the chest x-ray. Plan: will continue with BiPAP support at current settings at night and also during the day. repeat arterial blood gases in a.m.. Consider increasing Lovenox subcu to b.i.d. for better DVT prophylaxis. Will get apnea link study prior to discharge home. patient will need further evaluation as outpatient with pulmonary function testing. (3) Acute hypercapnic respiratory failure: Code(s): J96.02 - Acute respiratory failure with hypercapnia Status: Acute (4) Atelectasis of left lung: Code(s): J98.11 - Atelectasis Status: Acute History of Present Illness History of Present Illness Consult date: 03/01/22 Chief complaint: Respiratory failure with hypercarnia&hypoxia, Narrative: this 61-year-old female presented with lower extremity edema. The patient has history of morbid obesity and history of hypoxemic respiratory failure for which she was placed on home oxygen. The patient could not remember when she was started on home oxygen and for what reason. She uses the supplemental oxygen on p.r.n. basis. She has been a smoker for many years but has not been on medications for possible COPD. Workup in the emergency room showed acute on chronic hypercapnic respiratory failure and hypoxemia. The patient has been treated with BiPAP support 06/06. She uses BiPAP support mostly at night but not during the day. She denied having cough or wheezing. She denied having shortness of breath. She never had a sleep study. She has history of hypothyroidism and has been on replacement therapy. Review of Systems Review of Systems: All system review is negative except as noted in HPI and below. Patient is a poor historian. [facility] Past Medical History Medical History (Updated 03/01/22 @ 16:28 by Camilo Whitehead MD) COPD (chronic obstructive pulmonary disease) Thyroid disorder TIA (transient ischemic attack) Surgical History Surgical History History of 2 sections S/P oophorectomy S/P tubal ligation Surgical history unknown Family History Family History (Updated 02/27/22 @ 22:40 by Margy Solares RN) Mother Dementia History of cancer Social History Social History Smoking packs per day: 1 Smoking cigarettes per day: 20.0 Years smoked: 45 Smoking pack-years: 45.00 Smoking status: Former smoker Tobacco type: cigarettes Smoking end date: 02/27/21 Alcohol intake: never Substance use: former Substance use type: marijuana Last use: 07/2021 Spiritual care concerns: No Meds Home Medications and Allergies Home Medications Medication Instructions Recorded Confirmed Type albuterol sulfate 90 mcg/actuation 2 puff inhalation Q4H PRN 08/04/21 02/27/22 History aerosol inhaler Shortness Of Breath Or Wheezing levothyroxine 150 mcg tablet 150 mcg PO DAILY 02/27/22 02/27/22 History Allergies Allergy/AdvReac Type Severity Reaction Status Date / Time
[2022-03-01] MEDS: CEPHALEXIN 500 MG CAPSULE PO (18:38)
[2022-03-01] MEDS: AZITHROMYCIN 250 MG TABLET PO (20:21)
[2022-03-02] VITALS (36 sets, daily range): BP systolic 87–115; BP diastolic 27–70; PULSE 57–99; RESP 15–20; TEMP 36.6–37.4; O2SAT 92–99
[2022-03-02] MEDS: CEPHALEXIN 500 MG CAPSULE PO ×4 (00:20→20:23)
[2022-03-02] MEDS: ALBUTEROL SULFATE NEB 2.5 MG/3 ML INH INHALATION ×4 (02:02→19:20)
[2022-03-02 05:22] LABS: Blood Urea Nitrogen 13 mg/dL (7-17); Calcium 8.3 mg/dL (8.4-10.2); Carbon Dioxide > 40 mmol/L (22-30); Chloride 87 mmol/L (98-107); Estimated CRCL calculation 79 ml/min; Estimated Glomerular Filt Rate > 60; Glucose 102 mg/dL (65-110); Potassium 3.7 mmol/L (3.4-5.0); Sodium 134 mmol/L (137-145)
[2022-03-02 05:45] LABS: Alveolar/Arterial O2 Gradient 96.1 mmHg; Base Excess ABG 12.5 mEq/l (+/-2.0); Fractional Inspired Oxygen 40 %; HCO3 ABG 42.6 mEq/l (22.0-26.0); Oxygen Content ABG 18.8 %vol (16.0-22.0); Oxygen Saturation ABG 95.8 % (95.0-100.0); Oxyhemoglobin 95.1 % THb (90.0-100.0); PO2 ABG 91.1 mmHg (80.0-100.0); PO2 FiO2 Ratio Arterial Blood 2.28 %; pH ABG 7.317 (7.350-7.450)
[2022-03-02 05:48] LABS: Device NON-INVASIVE VENT; Modified Allen's Test Pass; Non-Invasive Expiratory Pressure 6 CMH2O; Non-Invasive Inspiratory Pressure 12 CMH2O; Non-Invasive Vent Rate 15 /MIN; PCO2 ABG 85.2 mmHg (35.0-45.0); Site Drawn RIGHT RADIAL
[2022-03-02] MEDS: LEVOTHYROXINE SODIUM 150 MCG TABLET PO (06:10)
[2022-03-02 06:50] LABS: Free T4 Free Thyroxine Reflex 0.25 ng/dL (0.78-2.19)
[2022-03-02] MEDS: UMECLIDINIUM/VILANTEROL 62.5-25 MCG ELLIPTA 1 PUFF INHALATION (08:58)
--- NOTE | 2022-03-02 09:14 | PM.PNPUL ---
Progress Note: A&P Assessment and Plan (1) Acute on chronic respiratory failure with hypoxia and hypercapnia: Code(s): J96.21 - Acute and chronic respiratory failure with hypoxia; J96.22 - Acute and chronic respiratory failure with hypercapnia Status: Acute Assessment and Plan: clinical respiratory status unchanged but ABGs have shown worse worsening hypercapnia while on BiPAP support and supplemental oxygen. Physical exam is unchanged as well. Plan the patient will be switched to AVAPS tidal volume 550 EPAP 8 backup rate 12. Will continue to monitor arterial blood gases. Patient has obesity hypoventilation with persistent hypercapnia. It appears as though she will need home ventilatory support via ventilator as BiPAP does not seem to be working. (2) Atelectasis of left lung: Code(s): J98.11 - Atelectasis Status: Acute (3) Morbid obesity with BMI of 45.0-49.9, adult: Code(s): E66.01 - Morbid (severe) obesity due to excess calories; Z68.42 - Body mass index [BMI] 45.0-49.9, adult Status: Acute (4) Non-compliance with treatment: Code(s): Z91.19 - Patient's noncompliance with other medical treatment and regimen Status: Acute (5) Chronic venous stasis dermatitis of both lower extremities: Code(s): I87.2 - Venous insufficiency (chronic) (peripheral) Status: Acute (6) Hypothyroidism: Code(s): E03.9 - Hypothyroidism, unspecified Status: Acute Subjective Date/time seen: 03/02/22 09:14 Patient has no new respiratory symptoms. Slept well on BiPAP support last night, still on BiPAP support this a.m. ABGs showed persistent hypercapnia Review of Systems Review of Systems: All system review is negative except as noted in HPI and below. Patient is a poor historian. Exam Narrative: GENERAL APPEARANCE: Well developed, well nourished, alert and cooperative, morbidly obese and appears to be in mild respiratory distress while on BIPAP HEENT: Sclerae anicteric and conjunctivae pink and moist. Extraocular movements were intact and pupils were equal, round. NECK: Supple. There was no thyroid enlargement. LUNGS: Auscultation of the lungs revealed crackles at bases posteriorly no wheezing CARDIAC: There was a regular rate and rhythm without any murmurs, gallops, rubs. ABDOMEN: obese, erythematous rash lower abdominal wall .Soft and nontender. LYMPH NODES: No lymphadenopathy was appreciated in the neck. EXTREMITIES: No cyanosis, clubbing 2+ pedal edema with chronic stasis dermatitis changes NEUROLOGIC: Alert and oriented x 3. Normal affect. Objective Data Vital Signs Vital Signs: Vital Signs - 24 hr 03/01/22 10:00 03/01/22 12:00 03/01/22 14:30 Temperature 36.6 C Pulse Rate 77 89 75 Respiratory Rate 20 18 Blood Pressure 107/69 Pulse Oximetry 92 Oxygen Delivery Oxygen Flow Rate Fraction of Inspired Oxygen 03/01/22 15:50 03/01/22 16:00 03/01/22 12:00 Temperature 36.5 C Pulse Rate 83 84 88 Respiratory Rate 18 22 H Blood Pressure 92/60 L Pulse Oximetry 96 99 Oxygen Delivery BiPAP Oxygen Flow Rate Fraction of Inspired Oxygen 03/01/22 12:00 03/01/22 14:00 03/01/22 16:00 Temperature Pulse Rate 100 87 Respiratory Rate Blood Pressure Pulse Oximetry 94 Oxygen Delivery Nasal Cannula Oxygen Flow Rate 3 Fraction of Inspired Oxygen 03/01/22 16:00 03/01/22 18:00 03/01/22 19:49 Temperature 36.6 C Pulse Rate 76 97 Respiratory Rate 22 H Blood Pressure 104/56 L Pulse Oximetry 97 97 Oxygen Delivery Nasal Cannula Oxygen Flow Rate 3 Fraction of Inspired Oxygen 03/01/22 20:20 03/01/22 20:27 03/01/22 20:29 Temperature Pulse Rate 92 92 Respiratory Rate 18 Blood Pressure Pulse Oximetry 96 92 Oxygen Delivery Nasal Cannula Nasal Cannula Oxygen Flow Rate 4 4 Fraction of Inspired Oxygen 03/01/22 20:36 03/01/22 20:00 03/01/22 22:00 Temperature Pulse
[2022-03-02] MEDS: NEOMYCIN/POLYMYXIN/BACITRACIN OINTMENT 15 GM TUBE 1 APPLIC TOPICAL (09:38)
[2022-03-02] MEDS: ENOXAPARIN 40 MG/0.4 ML SYRINGE SUB-Q ×2 (09:41→20:24)
[2022-03-02 14:33] LABS: Alveolar/Arterial O2 Gradient 79.5 mmHg; Base Excess ABG 15.8 mEq/l (+/-2.0); Carboxyhemoglobin 0.3 % THb (0-2.0); Fractional Inspired Oxygen 35 %; Methemoglobin ABG 0.2 %THb (0-1.5); Oxygen Content ABG 18.3 %vol (16.0-22.0); Oxygen Saturation ABG 94.6 % (95.0-100.0); Oxyhemoglobin 94.6 % THb (90.0-100.0); PO2 ABG 78.3 mmHg (80.0-100.0); PO2 FiO2 Ratio Arterial Blood 2.24 %; Reduced Hemoglobin 4.9 %THb (0-5.0); Total Hemoglobin 13.7 g/dL (12.0-18.0); pH ABG 7.374 (7.350-7.450)
[2022-03-02 14:36] LABS: Device NON-INVASIVE VENT; Modified Allen's Test Pass; Non-Invasive Vent Rate 14 /MIN; PCO2 ABG 78.9 mmHg (35.0-45.0); Site Drawn RIGHT RADIAL
[2022-03-02 14:37] LABS: Non-Invasive Expiratory Pressure 8 CMH2O
--- NOTE | 2022-03-02 15:08 | PC.NURSE ---
On 03/02/22, the student, [Kyleigh Adams], provided care and completed [facility] documentation on this patient. I have reviewed the student's documentation and agree with the findings.
--- NOTE | 2022-03-02 16:06 | PCOTNOTE ---
Attempted to see pt. for occupational therapy evaluation. Per nursing, pt. blood pressue is low, and requests a hold on evaluation until tomorrow. Will follow.
--- NOTE | 2022-03-02 17:13 | PM.IMPN ---
Progress Note: A&P Assessment and Plan (1) Acute on chronic respiratory failure with hypoxia and hypercapnia: Code(s): J96.21 - Acute and chronic respiratory failure with hypoxia; J96.22 - Acute and chronic respiratory failure with hypercapnia Status: Acute Assessment and Plan: Patient states that she does not wear oxygen at home but according to the notes she has an oxygen tank at home that she uses intermittently. Blood gas on admission shows a pH is 7.32/74/51 on room air. She was started on BiPAP but stated that she could not tolerate it. CTA Chest showing atelectasis but no pulmonary embolism. Venous Doppler with no acute DVT. Echo showing EF 65-70% with normal RV size and function (It was a very limited study). She was started on antibiotics due to infiltrate of the lung but not seen by CT so abx adjusted to just Azithro. BNP normal. Was on IV Lasix and diuresed well but held due to contraction alkalosis. Wean O2 as tolerated. Home O2 evaluation close to discharge. Pulmonary consulted and appreciate their input. Changed to AVAPS and toelrating this better. (2) Chronic venous stasis dermatitis of both lower extremities: Code(s): I87.2 - Venous insufficiency (chronic) (peripheral) Status: Acute Assessment and Plan: Patient has chronic venous stasis dermatitis in the bilateral lower extremities. She also has findings more consistent with psoriasis. There is a erythematous patch noted her lower pannus which could be cellulitis so Keflex started. Wound Care has been consulted and appreciate their input. (3) COPD (chronic obstructive pulmonary disease): Code(s): J44.9 - Chronic obstructive pulmonary disease, unspecified Status: Acute Assessment and Plan: Patient is not actively wheezing. She does have chronic CO2 retention which could be from COPD but suspect more likely she has obesity hypoventilation syndrome. Echo does not show pulmonary HTN but possibly just not seen since poor study. Continue nebulizer treatments and inhalers. Pulmonary following (4) Morbid obesity with BMI of 45.0-49.9, adult: Code(s): E66.01 - Morbid (severe) obesity due to excess calories; Z68.42 - Body mass index [BMI] 45.0-49.9, adult Status: Acute Assessment and Plan: BMI 47. Her obesity is contributing to her other medical problems. Encouraged Lifestyle and diet modifications. (5) Hypothyroidism: Code(s): E03.9 - Hypothyroidism, unspecified Status: Acute Assessment and Plan: TSH in August was 61. Repeat TSH here is 78. Patient has a history of noncompliance and she is not sure if she has been taking this medication. Her levothyroxine was continued here. Will not adjust dose but instead repeat levels in a few weeks. Plan DVT prophylaxis: Lovenox Code status: Full Diet: Heart healthy Subjective Date/time seen: 03/02/22 17:13 Interval history: 61yo female with COPD and morbid obesity here for shortness of breath. Patient is not sure if she has been compliant with her thyroid medications. She feels better. She is tolerating the mask more. No CP. Eating well. Exam Narrative: AF 98.8 90/70 85 18 Gen - NARD sitting at the side of the bed with BiPAP in place. Chest -distant but clear breath sounds. Normal respiratory rate. No conversational dyspnea. CV - RRR S1/S2. Telemetry showing no significant dysrhythmias. Abd -soft. Obese. Positive bowel sounds. Nontender. Ext -1+ pedal edema. Psych - Nml mood but odd affect Skin - Warm and dry.Padron scaly lesions noted in the bilateral thighs consistent with psoriasis. More distal lower extremity multiple dried eschars noted. Objective Data Vital Signs Vital Signs: Vital Signs - 24 hr 03/01/22 18:00 03/01/22 19:49 03/01/22 20:20 Temperature 97.8 F Pulse Rate 76 97 Respiratory Rate 22 H Blood Pressure 104/56 L Pulse Oximetry 97 96 Oxygen Delivery Nasa
[2022-03-02] MEDS: AZITHROMYCIN 250 MG TABLET PO (20:23)
[2022-03-03] VITALS (25 sets, daily range): BP systolic 103–120; BP diastolic 60–72; PULSE 69–98; RESP 14–20; TEMP 36.2–36.9; O2SAT 92–97
[2022-03-03] MEDS: CEPHALEXIN 500 MG CAPSULE PO ×4 (00:20→18:35)
[2022-03-03] MEDS: ALBUTEROL SULFATE NEB 2.5 MG/3 ML INH INHALATION ×4 (01:33→21:22)
[2022-03-03 05:04] LABS: Hematocrit 42.2 % (37.0-47.0); Hemoglobin 12.3 g/dL (12.0-15.0); Mean Corpuscular HGB Conc 29.1 g/dl (32-36); Mean Corpuscular Hemoglobin 27.3 pg (26-34); Mean Corpuscular Volume 93.6 fl (80-100); Mean Platelet Volume 9.7 fl (7.4-10.4); Platelet Count Result 233 k/mm3 (150-375); Red Blood Count 4.51 M/mm3 (4.2-5.4); Red Cell Distribution Width 19.3 % (11.5-14.5); White Blood Count 8.2 K/mm3 (4.5-10.0)
[2022-03-03 05:20] LABS: Blood Urea Nitrogen 12 mg/dL (7-17); Calcium 8.3 mg/dL (8.4-10.2); Carbon Dioxide > 40 mmol/L (22-30); Chloride 89 mmol/L (98-107); Estimated CRCL calculation 82 ml/min; Estimated Glomerular Filt Rate > 60; Glucose 100 mg/dL (65-110); Potassium 3.8 mmol/L (3.4-5.0); Sodium 129 mmol/L (137-145)
[2022-03-03] MEDS: LEVOTHYROXINE SODIUM 150 MCG TABLET PO (06:20)
[2022-03-03] MEDS: UMECLIDINIUM/VILANTEROL 62.5-25 MCG ELLIPTA 1 PUFF INHALATION (08:54)
--- NOTE | 2022-03-03 08:54 | PM.PNPUL ---
Progress Note: A&P Assessment and Plan (1) Acute on chronic respiratory failure with hypoxia and hypercapnia: Code(s): J96.21 - Acute and chronic respiratory failure with hypoxia; J96.22 - Acute and chronic respiratory failure with hypercapnia Status: Acute Assessment and Plan: 61-year-old female with chronic hypercapnic hypoxemic respiratory failure and chronic lower extremity edema. The patient presented with a episode of acute on chronic hypercapnic respiratory failure related to obesity hypoventilation he has. Initially she was treated with BiPAP support but because of persistent hypercapnia she was switched to AVAPS. The patient is tolerating AVAPS well and repeat arterial blood gases showed improvement of a chronic respiratory acidosis /hypercapnia. The patient will require ventilatory support at home via ventilator as BiPAP does not seem to have any benefits on patient's hypercapnic respiratory failure. Plan continue with current AVAPS settings at night and p.r.n. during the day. Out of bed to chair. Continue with DVT prophylaxis. Await home ventilator approval. The patient will have to come to the outpatient Pulmonary Clinic for further evaluation with pulmonary function testing. (2) Atelectasis of left lung: Code(s): J98.11 - Atelectasis Status: Acute (3) Morbid obesity with BMI of 45.0-49.9, adult: Code(s): E66.01 - Morbid (severe) obesity due to excess calories; Z68.42 - Body mass index [BMI] 45.0-49.9, adult Status: Acute (4) Non-compliance with treatment: Code(s): Z91.19 - Patient's noncompliance with other medical treatment and regimen Status: Acute (5) Chronic venous stasis dermatitis of both lower extremities: Code(s): I87.2 - Venous insufficiency (chronic) (peripheral) Status: Acute (6) Hypothyroidism: Code(s): E03.9 - Hypothyroidism, unspecified Status: Acute Subjective Date/time seen: 03/03/22 08:54 Patient has no new respiratory symptoms. Slept well on AVAPS last night. Fully alert on supplemental oxygen this a.m. Review of Systems Review of Systems: All system review is negative except as noted in HPI and below. Patient is a poor historian. Exam Narrative: GENERAL APPEARANCE: Well developed, well nourished, alert and cooperative, morbidly obese and appears to be in mild respiratory distress while on BIPAP HEENT: Sclerae anicteric and conjunctivae pink and moist. Extraocular movements were intact and pupils were equal, round. NECK: Supple. There was no thyroid enlargement. LUNGS: Auscultation of the lungs revealed crackles at bases posteriorly no wheezing CARDIAC: There was a regular rate and rhythm without any murmurs, gallops, rubs. ABDOMEN: obese, erythematous rash lower abdominal wall .Soft and nontender. LYMPH NODES: No lymphadenopathy was appreciated in the neck. EXTREMITIES: No cyanosis, clubbing 2+ pedal edema with chronic stasis dermatitis changes NEUROLOGIC: Alert and oriented x 3. Normal affect. Objective Data Vital Signs Vital Signs: Vital Signs - 24 hr 03/02/22 08:55 03/02/22 09:00 03/02/22 09:10 Temperature Pulse Rate 78 88 84 Respiratory Rate 17 17 Blood Pressure Pulse Oximetry 94 Oxygen Delivery BiPAP Oxygen Flow Rate Fraction of Inspired Oxygen 03/02/22 10:00 03/02/22 10:55 03/02/22 11:37 Temperature 37.4 C Pulse Rate 93 84 81 Respiratory Rate 16 18 Blood Pressure 93/39 L Pulse Oximetry 96 94 Oxygen Delivery BiPAP Oxygen Flow Rate Fraction of Inspired Oxygen 03/02/22 12:00 03/02/22 12:21 03/02/22 12:21 Temperature 37.4 C Pulse Rate 81 81 84 Respiratory Rate 18 16 Blood Pressure 93/39 L Pulse Oximetry 93 95 Oxygen Delivery Oxygen Flow Rate Fraction of Inspired Oxygen 03/02/22 12:33 03/02/22 14:40 03/02/22 14:48 Temperature Pulse Rate 83 83 Respiratory Rate 15 15 15 Blood Pressure Pulse Oximetry 97 98 Ox
[2022-03-03] MEDS: ENOXAPARIN 40 MG/0.4 ML SYRINGE SUB-Q ×2 (09:59→21:07)
[2022-03-03] MEDS: NEOMYCIN/POLYMYXIN/BACITRACIN OINTMENT 15 GM TUBE 1 APPLIC TOPICAL (10:00)
--- NOTE | 2022-03-03 14:14 | PM.IMPN ---
Progress Note: A&P Assessment and Plan (1) Acute on chronic respiratory failure with hypoxia and hypercapnia: Code(s): J96.21 - Acute and chronic respiratory failure with hypoxia; J96.22 - Acute and chronic respiratory failure with hypercapnia Status: Acute Assessment and Plan: Patient states that she does not wear oxygen at home but according to the notes she has an oxygen tank at home and is supposed to be on this continuously. Blood gas on admission shows a pH is 7.32/74/51 on room air. She was started on BiPAP but stated that she could not tolerate it. CTA Chest showing atelectasis but no pulmonary embolism. Venous Doppler with no acute DVT. Echo showing EF 65-70% with normal RV size and function (It was a very limited study). She was started on antibiotics due to infiltrate of the lung but not seen by CT so abx adjusted to just Azithro. BNP normal. Was on IV Lasix and diuresed well but held due to contraction alkalosis. Wean O2 as tolerated. Pulmonary consulted and appreciate their input. Changed to AVAPS and tolerating this better. Need her family to bring in the trilogy unit so this can be adjusted. Home O2 evaluation when pulmonary feels patient is ready for discharge. (2) Chronic venous stasis dermatitis of both lower extremities: Code(s): I87.2 - Venous insufficiency (chronic) (peripheral) Status: Acute Assessment and Plan: Patient has chronic venous stasis dermatitis in the bilateral lower extremities. She also has findings more consistent with psoriasis. There is a erythematous patch noted her lower pannus which could be cellulitis so Keflex started. Pannus erythema has not changed much. Wound Care has been consulted and appreciate their input. Add Eucerin cream (3) COPD (chronic obstructive pulmonary disease): Code(s): J44.9 - Chronic obstructive pulmonary disease, unspecified Status: Acute Assessment and Plan: Patient is not actively wheezing. She does have chronic CO2 retention which could be from COPD but suspect more likely she has obesity hypoventilation syndrome. Echo does not show pulmonary HTN but possibly just not seen since poor study. Continue nebulizer treatments and inhalers. Pulmonary following (4) Morbid obesity with BMI of 45.0-49.9, adult: Code(s): E66.01 - Morbid (severe) obesity due to excess calories; Z68.42 - Body mass index [BMI] 45.0-49.9, adult Status: Acute Assessment and Plan: BMI 47. Her obesity is contributing to her other medical problems. Encouraged Lifestyle and diet modifications. (5) Hypothyroidism: Code(s): E03.9 - Hypothyroidism, unspecified Status: Acute Assessment and Plan: TSH in August was 61. Repeat TSH here is 78. Patient has a history of noncompliance and she is not sure if she has been taking this medication. Her levothyroxine was continued here. Will not adjust dose but instead repeat levels in a few weeks. (6) Hyponatremia: Code(s): E87.1 - Hypo-osmolality and hyponatremia Status: Acute Assessment and Plan: Patient eating well so doubt that this is dehydration. She was on diuretics but these have been stopped. Lower sodium may be related to fluid retention. Consider SIADH. Check urine studies. Plan DVT prophylaxis: Lovenox Code status: Full Diet: Heart healthy Subjective Date/time seen: 03/03/22 14:14 Interval history: 61yo female with COPD and morbid obesity here for shortness of breath. Feeling better. Tolerating mask. Son found Trilogy at the patient's home and will try to bring this in. Exam Narrative: AF 97.5 116/66 82 60 97% 2L Gen - NARD sitting in the chair Chest - distant, clear breath sounds. Normal respiratory rate CV - RRR S1/S2. Telemetry showing no significant dysrhythmias Abd -soft. Obese. Positive bowel sounds. Nontender. Ext -trace pedal edema. Psych - Nml mood and affect Skin - Warm and dry. [place]
--- NOTE | 2022-03-03 15:03 | PCRCNOTE ---
AT THIS TIME, PT IS UNABLE TO OBTAIN NEW TRILOGY UNIT BECAUSE SHE ALREADY HAS ONE THAT IS [facility]. THIS EXISTING TRILOGY RENTAL IS FROM HER PREVIOUS HOME [place] ([place]) WHEN SHE MOVED, SHE DOESNT KNOW IF SHE BROUGHT IT ALONG. IT MAY BE HERE, OR THERE. [facility] UNFORTUNATELY, HASNT BEEN ABLE TO SERVICE HER EQUIPMENT (TRILOGY VANI AND O2) SINCE BEFORE NOVEMBER BECAUSE THEY CANT GET AHOLD OF HER. SHE HASNT HAD ANY USAGE PER [facility] HOME USAGE DATA. MOVING FORWARD: WHEN THE SON FINDS THE TRILOGY UNIT, AND BRINGS IT IN, CALL LISA AT [facility] @ (cell) SHE IS TAKING OVER THIS PATIENTS ACCT. SHE WILL LOOK OVER UNIT AND SETTINGS AND GIVE ANY NEW TUBING/MASK THAT SHE MAY NEED TO ENSURE SHE HAS A GOOD WORKING TRILOGY FOR HOME.
[2022-03-03 18:33] LABS: Creatinine Urine 57.9 mg/dL; Sodium Urine Random 62 meq/L
[2022-03-03] MEDS: EUCERIN CREAM 120 GM JAR 1 APPLIC TOPICAL (18:35)
[2022-03-03] MEDS: AZITHROMYCIN 250 MG TABLET PO (21:07)
[2022-03-04] VITALS (22 sets, daily range): BP systolic 96–109; BP diastolic 45–67; PULSE 68–95; RESP 16–24; TEMP 35.9–36.8; O2SAT 93–100
[2022-03-04] MEDS: CEPHALEXIN 500 MG CAPSULE PO ×5 (00:18→23:17)
[2022-03-04] MEDS: ALBUTEROL SULFATE NEB 2.5 MG/3 ML INH INHALATION ×4 (02:59→20:32)
[2022-03-04 04:42] LABS: Anion Gap 8 mmol/L (8-16); Blood Urea Nitrogen 10 mg/dL (7-17); Calcium 8.1 mg/dL (8.4-10.2); Carbon Dioxide 39 mmol/L (22-30); Chloride 90 mmol/L (98-107); Estimated CRCL calculation 93 ml/min; Estimated Glomerular Filt Rate > 60; Glucose 102 mg/dL (65-110); Potassium 4.1 mmol/L (3.4-5.0); Sodium 137 mmol/L (137-145)
[2022-03-04] MEDS: LEVOTHYROXINE SODIUM 150 MCG TABLET PO (06:16)
[2022-03-04] MEDS: EUCERIN CREAM 120 GM JAR 1 APPLIC TOPICAL (08:46)
[2022-03-04] MEDS: ENOXAPARIN 40 MG/0.4 ML SYRINGE SUB-Q ×2 (08:46→20:42)
[2022-03-04] MEDS: NEOMYCIN/POLYMYXIN/BACITRACIN OINTMENT 15 GM TUBE 1 APPLIC TOPICAL (08:46)
[2022-03-04] MEDS: UMECLIDINIUM/VILANTEROL 62.5-25 MCG ELLIPTA 1 PUFF INHALATION (09:05)
--- NOTE | 2022-03-04 13:27 | PM.IMPN ---
Progress Note: A&P Assessment and Plan (1) Acute on chronic respiratory failure with hypoxia and hypercapnia: Code(s): J96.21 - Acute and chronic respiratory failure with hypoxia; J96.22 - Acute and chronic respiratory failure with hypercapnia Status: Acute Assessment and Plan: Patient states that she does not wear oxygen at home but she is supposed to be on this continuously. Blood gas on admission shows a pH is 7.32/74/51 on room air. She also has a Trilogy unit at home but does not wear this. She was started on BiPAP here but could not tolerate it. -- CTA Chest showing atelectasis but no pulmonary embolism. -- Venous Doppler with no acute DVT. -- Echo showing EF 65-70% with normal RV size and function (It was a very limited study). She was started on antibiotics due to infiltrate of the lung but not seen by CT so abx adjusted to just Azithro. BNP normal. Was on IV Lasix and diuresed well but held due to contraction alkalosis. Pulmonary consulted and appreciate their input. Changed to AVAPS and tolerating this better. We can not get a unit for her since she already has a Trilogy at home. We need her family to bring in the trilogy unit so this can be adjusted. Home O2 evaluation when pulmonary feels patient is ready for discharge. Wean O2 as tolerated. (2) Chronic venous stasis dermatitis of both lower extremities: Code(s): I87.2 - Venous insufficiency (chronic) (peripheral) Status: Acute Assessment and Plan: Patient has chronic venous stasis dermatitis in the bilateral lower extremities. She also has findings more consistent with psoriasis. There is a pink erythematous patch noted to her lower pannus which could be cellulitis so Keflex started. Pannus erythema has not changed much. Wound Care has been consulted and appreciate their input. Continue Eucerin cream (3) COPD (chronic obstructive pulmonary disease): Code(s): J44.9 - Chronic obstructive pulmonary disease, unspecified Status: Acute Assessment and Plan: Patient is not actively wheezing. She does have chronic CO2 retention which could be from COPD but suspect more likely she has obesity/hypoventilation syndrome. Echo does not show pulmonary HTN but possibly just not seen since it was a poor study. Continue nebulizer treatments and inhalers. Pulmonary following (4) Morbid obesity with BMI of 45.0-49.9, adult: Code(s): E66.01 - Morbid (severe) obesity due to excess calories; Z68.42 - Body mass index [BMI] 45.0-49.9, adult Status: Acute Assessment and Plan: BMI 47. Her obesity is contributing to her other medical problems. Encouraged Lifestyle and diet modifications. (5) Hypothyroidism: Code(s): E03.9 - Hypothyroidism, unspecified Status: Acute Assessment and Plan: TSH in August was 61. Repeat TSH here is 78. Patient has a history of noncompliance and she is not sure if she has been taking this medication. Her levothyroxine was continued here. Will not adjust dose but instead repeat levels in a few weeks. (6) Hyponatremia: Code(s): E87.1 - Hypo-osmolality and hyponatremia Status: Acute Assessment and Plan: Sodium dropped to 129. She was fluid restricted. Urine Na 58 with FENa 0.5%. She was on diuretics but these have been stopped. Sodium normal now. Follow. Plan DVT prophylaxis: Lovenox Code status: Full Diet: Heart healthy Subjective Date/time seen: 03/04/22 13:27 Interval history: 61yo female with COPD and morbid obesity here for shortness of breath. Feeling better. No CP. SOB better. No n/v. She complains of having a poor memory. She is not sure if she has the O2 tubing at home but feels the O2 tanks are empty. Her son has yet to bring in the Trilogy unit Exam Narrative: AF 97.4 100/53 84 20 98% 2L Gen - NARD sitting at the side of the bed Chest - distant, clear breath sounds. Normal respiratory rate CV - RRR S1/S2. T
[2022-03-04] MEDS: MELATONIN 5 MG TABLET PO (21:53)
[2022-03-05] VITALS (24 sets, daily range): BP systolic 92–130; BP diastolic 59–79; PULSE 72–96; RESP 16–26; TEMP 36.3–37.1; O2SAT 88–100
[2022-03-05] MEDS: ALBUTEROL SULFATE NEB 2.5 MG/3 ML INH INHALATION ×4 (02:22→20:48)
[2022-03-05] MEDS: CEPHALEXIN 500 MG CAPSULE PO ×4 (05:50→23:47)
[2022-03-05] MEDS: LEVOTHYROXINE SODIUM 150 MCG TABLET PO (05:50)
[2022-03-05] MEDS: NEOMYCIN/POLYMYXIN/BACITRACIN OINTMENT 15 GM TUBE 1 APPLIC TOPICAL (08:38)
[2022-03-05] MEDS: ENOXAPARIN 40 MG/0.4 ML SYRINGE SUB-Q ×2 (08:38→20:48)
[2022-03-05] MEDS: EUCERIN CREAM 120 GM JAR 1 APPLIC TOPICAL (08:39)
[2022-03-05] MEDS: ACETAMINOPHEN 325 MG TABLET 650 MG PO (08:39)
[2022-03-05] MEDS: UMECLIDINIUM/VILANTEROL 62.5-25 MCG ELLIPTA 1 PUFF INHALATION (09:03)
--- NOTE | 2022-03-05 15:34 | PM.IMPN ---
Progress Note: A&P Assessment and Plan (1) Acute on chronic respiratory failure with hypoxia and hypercapnia: Code(s): J96.21 - Acute and chronic respiratory failure with hypoxia; J96.22 - Acute and chronic respiratory failure with hypercapnia Status: Acute Assessment and Plan: Patient states that she does not wear oxygen at home but she is supposed to be on this continuously. Blood gas on admission shows a pH is 7.32/74/51 on room air. -- CTA Chest showing atelectasis but no pulmonary embolism. -- Venous Doppler with no acute DVT. -- Echo showing EF 65-70% with normal RV size and function (It was a very limited study). She has a Trilogy unit at home but does not wear this. She was started on BiPAP here but could not tolerate it but did well with AVAPS. She was started on antibiotics due to infiltrate of the lung but not seen by CT so abx adjusted to just Azithro. BNP normal. Was on IV Lasix and diuresed well but held due to contraction alkalosis. Pulmonary consulted and appreciate their input. We were able to get her Trilogy from home. Pulmonary contacted to adjust Trilogy unit so she can use her Triliogy at home. Home O2 evaluation when pulmonary feels patient is ready for discharge. Wean O2 as tolerated. (2) Chronic venous stasis dermatitis of both lower extremities: Code(s): I87.2 - Venous insufficiency (chronic) (peripheral) Status: Acute Assessment and Plan: Patient has chronic venous stasis dermatitis in the bilateral lower extremities. She also has findings more consistent with psoriasis. There is a pink erythematous patch noted to her lower pannus which could be cellulitis so Keflex started. Pannus erythema has not changed much. Wound Care has been consulted and appreciate their input. Continue Eucerin cream. Continue Keflex. (3) COPD (chronic obstructive pulmonary disease): Code(s): J44.9 - Chronic obstructive pulmonary disease, unspecified Status: Acute Assessment and Plan: Patient is not actively wheezing. She does have chronic CO2 retention which could be from COPD but suspect more likely she has obesity/hypoventilation syndrome. Echo does not show pulmonary HTN but possibly just not seen since it was a poor study. Continue nebulizer treatments and inhalers. Pulmonary following (4) Morbid obesity with BMI of 45.0-49.9, adult: Code(s): E66.01 - Morbid (severe) obesity due to excess calories; Z68.42 - Body mass index [BMI] 45.0-49.9, adult Status: Acute Assessment and Plan: BMI 47. Her obesity is contributing to her other medical problems. Encouraged Lifestyle and diet modifications. (5) Hypothyroidism: Code(s): E03.9 - Hypothyroidism, unspecified Status: Acute Assessment and Plan: TSH in August was 61. Repeat TSH here is 78. Patient has a history of noncompliance and she is not sure if she has been taking this medication. Her levothyroxine was continued here. Will not adjust dose but instead repeat levels in a few weeks. (6) Hyponatremia: Code(s): E87.1 - Hypo-osmolality and hyponatremia Status: Acute Assessment and Plan: Sodium dropped to 129. She was fluid restricted. Urine Na 58 with FENa 0.5%. She was on diuretics but these have been stopped. Sodium normal now. Stop fluid restriction. Plan DVT prophylaxis: Lovenox Code status: Full Diet: Heart healthy Subjective Date/time seen: 03/05/22 15:34 Interval history: 61yo female with COPD and morbid obesity here for shortness of breath. Patient's trilogy was brought in by family. She is feeling well. No chest pain or shortness of breath. Eating well. Exam Narrative: AF 98.3 92/60 78 20 88% on 0.5L with exertion but improved on 1L Gen - NARD sitting at the side of the bed Chest - few basilar crackles o/w clear. nml RR CV - RRR S1/S2. Telemetry showing no significant dysrhythmias Abd -soft. Obese. Positive bowel
[2022-03-06] VITALS (23 sets, daily range): BP systolic 97–117; BP diastolic 45–61; PULSE 73–103; RESP 16–24; TEMP 36.2–36.9; O2SAT 93–99
[2022-03-06] MEDS: ALBUTEROL SULFATE NEB 2.5 MG/3 ML INH INHALATION ×3 (02:57→20:48)
[2022-03-06] MEDS: CEPHALEXIN 500 MG CAPSULE PO ×3 (05:31→17:15)
[2022-03-06] MEDS: LEVOTHYROXINE SODIUM 150 MCG TABLET PO (05:31)
[2022-03-06] MEDS: UMECLIDINIUM/VILANTEROL 62.5-25 MCG ELLIPTA 1 PUFF INHALATION (08:38)
[2022-03-06] MEDS: ENOXAPARIN 40 MG/0.4 ML SYRINGE SUB-Q ×2 (09:17→20:45)
[2022-03-06] MEDS: NEOMYCIN/POLYMYXIN/BACITRACIN OINTMENT 15 GM TUBE 1 APPLIC TOPICAL (09:18)
[2022-03-06] MEDS: EUCERIN CREAM 120 GM JAR 1 APPLIC TOPICAL (09:18)
--- NOTE | 2022-03-06 10:12 | PC.NURSE ---
attempted to call Lynn at [facility] regarding patient's home trilogy machine. No answer. Message left.
--- NOTE | 2022-03-06 13:54 | PM.PNPUL ---
Progress Note: A&P Assessment and Plan (1) Acute on chronic respiratory failure with hypoxia and hypercapnia: Code(s): J96.21 - Acute and chronic respiratory failure with hypoxia; J96.22 - Acute and chronic respiratory failure with hypercapnia Status: Acute Assessment and Plan: 61-year-old female with chronic hypercapnic hypoxemic respiratory failure and chronic lower extremity edema. The patient presented with a episode of acute on chronic hypercapnic respiratory failure related to obesity hypoventilation; initially she was treated with BiPAP support but because of persistent hypercapnia she was switched to AVAPS. The patient is tolerating AVAPS well and repeat arterial blood gases showed somewhat improvement of a chronic respiratory acidosis /hypercapnia. The patient will require ventilatory support at home via ventilator as BiPAP does not seem to have any benefits on patient's hypercapnic respiratory failure. Her Trilogy device from home is in the room, settings : TV 360 ml, Max pressure 35 cm; EPAP 5/15/ min and max; PS 5/20 min and max; rise time 2; AVAPS speed 5. Plan : Have [facility] adjust her own Trilogy device to increased TV to 400, out of bed to chair. I will give a dose of acetazolamide to mildly reduce her serum CO2 in an attempt to help her ventilate a little more. Continue with DVT prophylaxis. The patient will have to come to the outpatient Pulmonary Clinic for further evaluation with pulmonary function testing. Discussed with Dr Hagen. We will check an ABG tomorrow am on her new Trilogy settings, Mar 6, with Home O2 evaluation and anticipate discharge to home tomorrow. Her ABGs from Feb show worse hypercapnia, and high HCO3 with pO2 in the 86 range, high saturation; she may be using too much O2 at home. She is not able to process information to take care of herself, cannot use her supplies appropriately, and is non-compliant. She says that she wants to be compliant. I am not sure if she is able to do so. She cannot understand complex instructions, appears depressed, and was crying uncontrollably on the toilet because she lost control of her bladder getting to the bathroom, did not have assistance when she needed it. She is complicated, and she needs close follow up after discharge. (2) Atelectasis of left lung: Code(s): J98.11 - Atelectasis Status: Acute Assessment and Plan: Mild atelectasis on CTA 02/28/22. (3) Morbid obesity with BMI of 45.0-49.9, adult: Code(s): E66.01 - Morbid (severe) obesity due to excess calories; Z68.42 - Body mass index [BMI] 45.0-49.9, adult Status: Acute Assessment and Plan: BMI is 50.7. This is a huge contributing factor to her respiratory failure. Weight loss is essential. (4) Non-compliance with treatment: Code(s): Z91.19 - Patient's noncompliance with other medical treatment and regimen Status: Acute Assessment and Plan: Long standing. (5) Chronic venous stasis dermatitis of both lower extremities: Code(s): I87.2 - Venous insufficiency (chronic) (peripheral) Status: Acute Assessment and Plan: (6) Hypothyroidism: Code(s): E03.9 - Hypothyroidism, unspecified Status: Acute Assessment and Plan: Treatment per Dr Hagen. Subjective Date/time seen: 03/06/22 13:54 61-year-old female with?COPD, chronic hypercapnic hypoxemic respiratory failure and chronic lower extremity edema. ? The patient presented with a episode of acute on chronic hypercapnic respiratory failure related to obesity hypoventi
--- NOTE | 2022-03-06 16:13 | PM.IMPN ---
Progress Note: A&P Assessment and Plan (1) Acute on chronic respiratory failure with hypoxia and hypercapnia: Code(s): J96.21 - Acute and chronic respiratory failure with hypoxia; J96.22 - Acute and chronic respiratory failure with hypercapnia Status: Acute Assessment and Plan: Patient states that she does not wear oxygen at home but she is supposed to be on this continuously. Blood gas on admission shows a pH is 7.32/74/51 on room air. -- CTA Chest showing atelectasis but no pulmonary embolism. -- Venous Doppler with no acute DVT. -- Echo showing EF 65-70% with normal RV size and function (It was a very limited study). She has a Trilogy unit at home but does not wear this. She was started on BiPAP here but could not tolerate it but did well with AVAPS. She was started on antibiotics due to infiltrate of the lung but not seen by CT so abx adjusted to just Azithro. She completed a course of Azithro. BNP normal. Was on IV Lasix and diuresed well but held due to contraction alkalosis. Pulmonary consulted and appreciate their input. We were able to get her Trilogy from home. Plan to have patietn wear Trlogy here and if does well, home with Trilogy. We will adjust the settings. Home O2 evaluation when pulmonary feels patient is ready for discharge. (2) COPD (chronic obstructive pulmonary disease): Code(s): J44.9 - Chronic obstructive pulmonary disease, unspecified Status: Acute Assessment and Plan: Patient is not actively wheezing. She does have chronic CO2 retention which could be from COPD but suspect more likely she has obesity/hypoventilation syndrome. Echo does not show pulmonary HTN but possibly just not seen since it was a poor study. Continue nebulizer treatments and inhalers. Pulmonary following (3) Chronic venous stasis dermatitis of both lower extremities: Code(s): I87.2 - Venous insufficiency (chronic) (peripheral) Status: Acute Assessment and Plan: Patient has chronic venous stasis dermatitis in the bilateral lower extremities. She also has findings more consistent with psoriasis. There is a pink erythematous patch noted to her lower pannus, possibly cellulitis so Keflex started. Pannus erythema appears to be fading. Wound Care has been consulted and appreciate their input. Continue Eucerin cream. Continue Keflex. (4) Morbid obesity with BMI of 45.0-49.9, adult: Code(s): E66.01 - Morbid (severe) obesity due to excess calories; Z68.42 - Body mass index [BMI] 45.0-49.9, adult Status: Acute Assessment and Plan: BMI 47. Her obesity is contributing to her other medical problems. Encouraged Lifestyle and diet modifications. (5) Hypothyroidism: Code(s): E03.9 - Hypothyroidism, unspecified Status: Acute Assessment and Plan: TSH in August was 61. Repeat TSH here is 78. Patient has a history of noncompliance and she is not sure if she has been taking this medication. Her levothyroxine was continued here. Will not adjust dose but instead repeat levels in a few weeks. (6) Hyponatremia: Code(s): E87.1 - Hypo-osmolality and hyponatremia Status: Acute Assessment and Plan: Sodium dropped to 129. She was fluid restricted. Urine Na 58 with FENa 0.5%. She was on diuretics but these have been stopped. Sodium normal now. Plan DVT prophylaxis: Lovenox Code status: Full Diet: Heart healthy Subjective Date/time seen: 03/06/22 16:13 Interval history: 61yo female with COPD and morbid obesity here for shortness of breath. Patient's trilogy was brought in by family but no tubing available. Feels well. No problems overnight. No CP or SOB. Exam Narrative: AF 98.4 116/59 77 22 97% on 1.5L Gen - NARD sitting at the side of the bed Chest - clear bilaterally. nml RR CV - RRR S1/S2. Telemetry showing no significant dysrhythmias Abd -soft. Obese. Positive bowel sounds. Nontender. Ext - improved pe
[2022-03-06] MEDS: acetaZOLAMIDE TAB 250 MG TABLET 500 MG PO (17:16)
[2022-03-07] VITALS (23 sets, daily range): BP systolic 93–106; BP diastolic 42–72; PULSE 69–100; RESP 13–25; TEMP 36.1–36.6; O2SAT 87–97
[2022-03-07] MEDS: CEPHALEXIN 500 MG CAPSULE PO ×3 (00:22→13:21)
[2022-03-07] MEDS: ALBUTEROL SULFATE NEB 2.5 MG/3 ML INH INHALATION ×3 (02:29→14:27)
[2022-03-07 05:05] LABS: Hematocrit 41.9 % (37.0-47.0); Hemoglobin 12.5 g/dL (12.0-15.0); Mean Corpuscular HGB Conc 29.8 g/dl (32-36); Mean Corpuscular Hemoglobin 27.8 pg (26-34); Mean Corpuscular Volume 93.1 fl (80-100); Mean Platelet Volume 10.3 fl (7.4-10.4); Platelet Count Result 260 k/mm3 (150-375); Red Cell Distribution Width 19.5 % (11.5-14.5); White Blood Count 9.8 K/mm3 (4.5-10.0)
[2022-03-07 05:06] LABS: Alveolar/Arterial O2 Gradient 94.6 mmHg; Base Excess ABG 3.6 mEq/l (+/-2.0); Fractional Inspired Oxygen 32 %; HCO3 ABG 29.7 mEq/l (22.0-26.0); Oxygen Content ABG 17.7 %vol (16.0-22.0); Oxygen Saturation ABG 94.3 % (95.0-100.0); PCO2 ABG 51.4 mmHg (35.0-45.0); PO2 ABG 73.4 mmHg (80.0-100.0); PO2 FiO2 Ratio Arterial Blood 2.29 %; Total Hemoglobin 13.5 g/dL (12.0-18.0)
[2022-03-07 05:07] LABS: Modified Allen's Test Pass; Site Drawn RIGHT RADIAL
[2022-03-07 05:35] LABS: Anion Gap 9 mmol/L (8-16); Blood Urea Nitrogen 10 mg/dL (7-17); Calcium 8.2 mg/dL (8.4-10.2); Carbon Dioxide 30 mmol/L (22-30); Chloride 95 mmol/L (98-107); Estimated CRCL calculation 82 ml/min; Estimated Glomerular Filt Rate > 60; Glucose 103 mg/dL (65-110); Potassium 4.2 mmol/L (3.4-5.0); Sodium 134 mmol/L (137-145)
[2022-03-07] MEDS: LEVOTHYROXINE SODIUM 150 MCG TABLET PO (06:09)
[2022-03-07] MEDS: UMECLIDINIUM/VILANTEROL 62.5-25 MCG ELLIPTA 1 PUFF INHALATION (08:05)
[2022-03-07] MEDS: EUCERIN CREAM 120 GM JAR 1 APPLIC TOPICAL (09:41)
[2022-03-07] MEDS: acetaZOLAMIDE TAB 250 MG TABLET 500 MG PO (09:41)
[2022-03-07] MEDS: NEOMYCIN/POLYMYXIN/BACITRACIN OINTMENT 15 GM TUBE 1 APPLIC TOPICAL (09:41)
[2022-03-07] MEDS: ENOXAPARIN 40 MG/0.4 ML SYRINGE SUB-Q (09:41)
--- NOTE | 2022-03-07 10:41 | PCRCNOTE ---
Home O2 eval done, pt needs 2L at rest and 3L bleed-in with Trilogy at night. Pt has alot of home O2 equipment from [facility] but is unable to tell me exactly what she has. Therefore, I will give her a tank from [facility] upon D/C for transport home, once home [facility] will go into house to see what equipment she has and what she may need to ensure she has adequate home oxygen. [facility] Office ph# [phone].
--- NOTE | 2022-03-07 10:53 | PM.CNPUL ---
Assessment and Plan Assessment and plan (1) Morbid obesity with BMI of 45.0-49.9, adult: Code(s): E66.01 - Morbid (severe) obesity due to excess calories; Z68.42 - Body mass index [BMI] 45.0-49.9, adult Status: Acute (2) Acute on chronic respiratory failure with hypoxia and hypercapnia: Code(s): J96.21 - Acute and chronic respiratory failure with hypoxia; J96.22 - Acute and chronic respiratory failure with hypercapnia Status: Acute Assessment and Plan: 61-year-old morbidly obese female with a history of hypoxemic respiratory failure, noncompliant with home oxygen/ventilator therapy presented with lower extremity edema and acute on chronic hypercapnic respiratory failure. Chest CT showed small basal atelectasis mostly in the left lung. Patient has hypoxemic hypercarbic respiratory failure most likely related to obesity hypoventilation. There is no evidence of radiographic emphysema on the chest x-ray. patient has improved over the last few days. On today's ABG there is further improvement of hypercapnic respiratory acidosis following treatment with home ventilator last night. Plan: okay to discharge patient home on home ventilator and supplemental oxygen 2 liters/minute at rest and 3 liters/minute at night along with the home ventilator. The patient will have to return to pulmonary clinic in approximately 1 month for follow-up. Encouraged patient to use both oxygen on home ventilator every night. (3) Acute hypercapnic respiratory failure: Code(s): J96.02 - Acute respiratory failure with hypercapnia Status: Acute (4) Atelectasis of left lung: Code(s): J98.11 - Atelectasis Status: Acute History of Present Illness History of Present Illness Consult date: 03/07/22 Chief complaint: Respiratory failure with hypercarnia&hypoxia, Narrative: Patient has no new respiratory symptoms. Used her home ventilator last night. Also underwent home oxygen evaluation. Reportedly her home ventilator settings were modified to by the outside DME air quality technician. Review of Systems Review of Systems: All system review is negative except as noted in HPI and below. [facility] Past Medical History Medical History (Updated 03/03/22 @ 17:22 by Gordon Hagen MD) COPD (chronic obstructive pulmonary disease) Thyroid disorder TIA (transient ischemic attack) Surgical History Surgical History History of 2 sections S/P oophorectomy S/P tubal ligation Surgical history unknown Family History Family History (Updated 02/27/22 @ 22:40 by Margy Solares RN) Mother Dementia History of cancer Social History Social History Smoking packs per day: 1 Smoking cigarettes per day: 20.0 Years smoked: 45 Smoking pack-years: 45.00 Smoking status: Former smoker Tobacco type: cigarettes Smoking end date: 02/27/21 Alcohol intake: never Substance use: former Substance use type: marijuana Last use: 07/2021 Spiritual care concerns: No Meds Home Medications and Allergies Home Medications Medication Instructions Recorded Confirmed Type albuterol sulfate 90 mcg/actuation 2 puff inhalation Q4H PRN 08/04/21 02/27/22 History aerosol inhaler Shortness Of Breath Or Wheezing levothyroxine 150 mcg tablet 150 mcg PO DAILY 02/27/22 02/27/22 History Allergies Allergy/AdvReac Type Severity Reaction Status Date / Time No Known Allergies Allergy Verified 10/05/21 14:20 Vital Signs Vital Signs - 24 hr 03/06/22 12:00 03/06/22 12:00 03/06/22 12:00 Temperature 36.9 C Pulse Rate 86 86 Respiratory Rate 20 Blood Pressure 116/59 L Pulse Oximetry 99 97 Oxygen Delivery Nasal Cannula Oxygen Flow Rate 2 03/06/22 15:00 03/06/22 14:00 03/06/22 15:10 Temperature Pulse Rate 79 77 77 Respiratory Rate 22 H 22 H Blood Pressure Pulse Oximetry
--- NOTE | 2022-03-07 11:36 | HOMEO2EVAL ---
Evaluation was performed at [facility] Home Oxygen Evaluation RC: Home Oxygen (O2) Evaluation Start: 03/07/22 11:30 Freq: ONCE Status: Active Protocol: RPE Activity Type Activity Date Activity User E-sign Co-sign Detail Recorded Client Recorded Date Recorded By Document 03/07/22 10:30 YANCI [email or web address] 03/07/22 11:36 YANCI Document 03/07/22 10:31 YANCI [email or web address] 03/07/22 11:36 YANCI Document 03/07/22 10:32 YANCI [email or web address] 03/07/22 11:36 YANCI Document 03/07/22 10:35 YANCI [email or web address] 03/07/22 11:36 YANCI Document 03/07/22 10:45 YANCI [email or web address] 03/07/22 11:36 YANCI 03/07/22 03/07/22 03/07/22 10:30 10:31 10:32 Home O2 Evaluation Test Phase Resting Resting Resting Oxygen Delivery Room Air Nasal Cannula Nasal Cannula Oxygen Flow Rate (L/min) 1 2 Pulse Oximetry (90-100 %) 87 L 87 L 93 Pulse Rate (60-100 beats/min) 88 Home Oxygen Evaluation Comments Treatment Charges O2 Evaluation - Inpatient 03/07/22 03/07/22 10:35 10:45 Home O2 Evaluation Test Phase Exercise Resting Oxygen Delivery Nasal Cannula Nasal Cannula Oxygen Flow Rate (L/min) 2 2 Pulse Oximetry (90-100 %) 90 92 Pulse Rate (60-100 beats/min) 100 86 Home Oxygen Evaluation Comments Pt requires 2 L at rest and with activity Treatment Charges
--- NOTE | 2022-03-07 12:28 | PM.DS ---
DS: Admitting Diagnosis Discharge Date 03/07/22 Admitting Diagnosis Lower extremity swelling DS: Discharge Diagnosis Discharge Diagnosis (1) Acute on chronic respiratory failure with hypoxia and hypercapnia: Code(s): J96.21 - Acute and chronic respiratory failure with hypoxia; J96.22 - Acute and chronic respiratory failure with hypercapnia Status: Acute (2) COPD (chronic obstructive pulmonary disease): Code(s): J44.9 - Chronic obstructive pulmonary disease, unspecified Status: Acute (3) Chronic venous stasis dermatitis of both lower extremities: Code(s): I87.2 - Venous insufficiency (chronic) (peripheral) Status: Acute (4) Morbid obesity with BMI of 45.0-49.9, adult: Code(s): E66.01 - Morbid (severe) obesity due to excess calories; Z68.42 - Body mass index [BMI] 45.0-49.9, adult Status: Acute (5) Hypothyroidism: Code(s): E03.9 - Hypothyroidism, unspecified Status: Acute (6) Hyponatremia: Code(s): E87.1 - Hypo-osmolality and hyponatremia Status: Acute DS: Summary Hospital Course Reason for hospitalization: 61yo female with COPD and morbid obesity here for shortness of breath. Please see H&P for details Hospital Course: Patient is supposed to be onO2 continuously but has been noncompliant. Blood gas on admission 7.32/74/51 on room air.? -- CTA Chest showing atelectasis but no pulmonary embolism. -- Venous Doppler negative for acute DVT. -- Echo showing EF 65-70% with normal RV size and function (It was a very limited study). She has a Trilogy unit at home but does not wear this. She was started on BiPAP here but could not tolerate it but did well with AVAPS.? She was started on antibiotics due to infiltrate of the lung by CXR but not seen by CT so abx adjusted to just Azithro. She completed a course of Azithro. BNP normal. Was on IV Lasix and diuresed well but held due to contraction alkalosis. Pulmonary consulted and appreciate their input. We were able to get her Trilogy from home and she wore this last night after adjustments made. Her ABG 7.38/51/73 on 3L. Home O2 evaluation showing she needs 2L at rest and 3L with activity. Patient was not actively wheezing.? She does have chronic CO2 retention which could be from COPD but suspect more likely she has obesity/hypoventilation syndrome. Echo does not show pulmonary HTN but possibly just not seen since it was a poor study. Patient has chronic venous stasis dermatitis in the bilateral lower extremities.? She also has findings more consistent with psoriasis.? There is a pink erythematous patch noted to her lower pannus, possibly cellulitis so Keflex started.? Wound Care was consulted and appreciate their input. Her BMI is 47.? Her obesity is contributing to her other medical problems.? We encouraged Lifestyle and diet modifications. TSH in August was 61.? Repeat TSH here is 78. Patient has a history of noncompliance and she is not sure if she has been taking this thyroid medication. Her levothyroxine was continued here at her home dose with plans to repeat levels in a few weeks. Sodium dropped to 129. She was fluid restricted. Urine Na 58 with FENa 0.5%. She was on diuretics but these have been stopped. Sodium level improved. Patient was complinat here with her O2 and with PAP therapy. She had improvement in her mental status and in her overall condition. We used Eucerin cream to her bilateral LE scale/eshcars. Patient will follow up with her doctor regarding further evaluation for her skin aliments. Patient overall did well and was able to be discharged home on 03/07/2022. Status at Discharge Cognitive/behavioral status at discharge: Stable Time Spent with Patient Time attestation: Total time spent providing and/or coordinating discharge services:35 minutes Time spent: Greater than 30 minutes Exam Narrative: AF 97.0 93/42 69 14 97% on 2L Gen - NARD sitting at the side of the bed Chest - clear bila
--- NOTE | 2022-03-07 13:19 | PCNWS ---
Weekly nutritional screen. Patient is tolerating current heart healthy diet with adequate intake at 100% of meals. No weight loss reported. No nutritional needs at this time.
[2022-03-07] MEDS: ACETAMINOPHEN 325 MG TABLET 650 MG PO (13:21)
--- NOTE | 2022-03-07 13:47 | PCRCNOTE ---
CURRENT HOME O2/TRILOGY: TRILOGY VANI Vt 550 RATE auto I-TIME 1 PS min 9 PS max 30 EPAP min 5 EPAP max 15 AVAPS SPEED 5 MAX PRESSURE 30 WITH 3L BLEED-IN O2. HOME O2 SETTING AT 2 L AT REST AND WITH ACTIVITY. [facility] office# [phone] Contact/rep- Lynn
[2022-03-08 11:26] LABS: Device NON-INVASIVE VENT
== END 2022-03-07 17:18 | disposition home or self-care (01) | DRG 143 ==
LOC: ANHED 20:33 → ANHIMU 21:22
PROVIDERS: Chiropractor; Internal Medicine Critical Care Medicine; Internal Medicine Pulmonary Disease; Admitting Provider Internal Medicine; Emergency Provider Emergency Medicine; Visit Provider Internal Medicine
DX: E66.2 Morbid (severe) obesity with alveolar hypoventilation (principal); J96.21 Acute and chronic respiratory failure with hypoxia; J44.9 Chronic obstructive pulmonary disease, unspecified; Z91.19 Patient's noncompliance with other medical treatment and regimen; E03.9 Hypothyroidism, unspecified; J96.22 Acute and chronic respiratory failure with hypercapnia; J98.11 Atelectasis; L03.319 Cellulitis of trunk, unspecified; I87.2 Venous insufficiency (chronic) (peripheral); L97.919 Non-pressure chronic ulcer of unspecified part of right lower leg with unspecified severity; Z90.722 Acquired absence of ovaries, bilateral; Z87.891 Personal history of nicotine dependence; Z68.43 Body mass index [BMI] 50.0-59.9, adult; Z86.73 Personal history of transient ischemic attack (TIA), and cerebral infarction without residual deficits; L40.9 Psoriasis, unspecified; E87.1 Hypo-osmolality and hyponatremia
CPT/HCPCS: 36415; 36600; 71046; 71275; 80048; 80053; 82375; 82570; 82805; 83050; 83605; 83880; 84300; 84439; 84443; 85025; 85027; 87040; 93005; 93306; 93970; 94002; 94003; 94618; 94640; 96365; 96367; 97110; 97116; 97161; 97166; 97530; 97535; 99285; A9270; G0378; G0379; J0456; J0696; J1650; J1940; Q9967